=== PATIENT | female | born 1955 | race Caucasian/White ===

== ENCOUNTER 2016-08-13 18:16 | Inpatient (IN) | payer BC ==
[~2016-08-13] VITALS: Ht 162.6 cm; Wt 56.5 kg
[2016-08-13] MEDS ORDERED: MORPHINE SULFATE 4 MG/ML DISP.SYRIN. ONE (18:28)
[2016-08-13 18:42] LABS: BASO # 0.1 x10^3/uL (0.0-0.2); BASO % 1 % (0-3); EOS % 0 % (0-3); HEMATOCRIT 44.9 % (36.0-47.0); HEMOGLOBIN 14.7 g/dL (12.0-15.5); LYMPH # 2.3 x10^3/uL (1.0-4.8); LYMPH % 18 % (24-48); MEAN CORPUSCULAR HEMOGLOBIN 31 pg (25-35); MEAN CORPUSCULAR HGB CONC 33 g/dL (31-37); MEAN CORPUSCULAR VOLUME 95 fL (79-100); MONO % 6 % (0-9); NEUT % 76 % (31-73); PLATELET COUNT 192 x10^3/uL (140-400); RED BLOOD COUNT 4.73 x10^6/uL (3.50-5.40); RED CELL DISTRIBUTION WIDTH 13.6 % (11.5-14.5); WHITE BLOOD COUNT 12.9 x10^3/uL (4.0-11.0)
[2016-08-13] MEDS ORDERED: ONDANSETRON PF 4 MG/2 ML VIAL. IV ONE (18:45)
[2016-08-13 18:53] LABS: CALCIUM 9.4 mg/dL (8.5-10.1); CREATININE 1.1 mg/dL (0.6-1.0); GFR 50.7; POTASSIUM 4.4 mmol/L (3.5-5.1)
[2016-08-13] MEDS: fentaNYL PF VIAL 100 MCG/2 ML VIAL IV PRN ×2 (19:13→19:46)
--- NOTE | 2016-08-13 19:26 | PHYS DOC ---
Past Medical History Past Medical History: Arthritis Additional Past Medical Histor: WPW Past Surgical History: Tonsillectomy Alcohol Use: Occasionally Drug Use: None Adult General Chief Complaint Chief Complaint: TRAUMA ACTIVATION HPI HPI Patient is a 61 year old female who presents with severe right thigh pain after falling down 6 steps. She tripped and fell. Symptoms are constant and severe, worse with moving. Notes intermittent severe spasm-like pain to her thighs well. She denies loss of consciousness, head pain, headache, vision changes, dizziness, nausea or vomiting, back pain, chest pain, abdominal pain, dyspnea, numbness, tingling, weakness. A: patent with normal voice B: CTAB C: 2+ extremity pulses equal in all 4 ext D: GCS 15 E: obvious deformity to right mid thigh, no other obvious long bone deformity, stable pelvis Review of Systems Review of Systems Constitutional: Denies fever or chills [] Eyes: Denies change in visual acuity, redness, or eye pain [] HENT: Denies nasal congestion or sore throat [] Respiratory: Denies cough or shortness of breath [] Cardiovascular: No additional information not addressed in HPI [] GI: Denies abdominal pain, nausea, vomiting, bloody stools or diarrhea [] : Denies dysuria or hematuria [] Musculoskeletal: Denies back pain [] Integument: Denies rash or skin lesions [] Neurologic: Denies headache, focal weakness or sensory changes [] Endocrine: Denies polyuria or polydipsia [] Current Medications Current Medications Current Medications Medications (Trade) Dose Ordered Sig/[facility] Start Time Stop Time Status Last Admin Dose Admin Diazepam (Valium) 2 mg 1X ONCE 08/13/16 19:00 08/13/16 19:01 DC Fentanyl Citrate (Fentanyl 2ml Vial) 75 mcg PRN Q15MIN PRN 08/13/16 18:45 08/14/16 18:44 Lorazepam (Ativan) 1 mg 1X ONCE 08/13/16 18:45 08/13/16 19:01 DC Morphine Sulfate 4 mg STK-MED ONCE 08/13/16 18:28 08/13/16 18:29 DC Ondansetron HCl (Zofran) 4 mg 1X ONCE 08/13/16 18:45 08/13/16 19:01 DC Allergies Allergies Allergies Coded Allergies Type Severity Reaction Last Updated Verified codeine Allergy Intermediate 08/13/16 Yes Physical Exam Physical Exam Constitutional: Well developed, well nourished, no acute distress, non-toxic appearance. [] HENT: Normocephalic, atraumatic, bilateral external ears normal, oropharynx moist, no oral exudates, nose normal. [] Eyes: PERRLA, EOMI, conjunctiva normal, no discharge. [] Neck: Normal range of motion, no tenderness, supple. [] Cardiovascular:Heart rate regular rhythm [] Lungs & Thorax: Bilateral breath sounds clear to auscultation [] Abdomen: Bowel sounds normal, soft, no tenderness. [] Skin: Warm, dry, no erythema, no rash. [] Back: No tenderness, no CVA tenderness. [] Extremities: RLE with obvious deformity to mid thigh and free mobility mid thigh , also with mid thigh swelling; skin intact; no discoloration; Able to flex/ex hip, knee full rom, ankle df/pf, toes df/pf; No obvious knee tenderness or hip tenderness; SILT anderson/sa/sp/dp/tib distributions; good dp and pt pulses equal bilaterally Neurologic: Alert and oriented X 3, normal motor function, normal sensory function, no focal deficits noted. [] Psychologic: Affect normal, judgement normal, mood normal. [] Current Patient Data Lab Values Laboratory Tests Test 08/13/16 18:30 White Blood Count 12.9 x10^3/uL (4.0-11.0) H Red Blood Count 4.73 x10^6/uL (3.50-5.40) Hemoglobin 14.7 g/dL (12.0-15.5) Hematocrit 44.9 % (36.0-47.0) Mean Corpuscular Volume 95 fL (79-100) Mean Corpuscular Hemoglobin 31 pg (25-35) Mean Corpuscular Hemoglobin Concent 33 g/dL (31-37) Red Cell Distribution Width 13.6 % (11.5-14.5) Platelet Count 192 x10^3/uL (140-400) Neutrophils (%) (Auto) 76 % (31-73) H Lymphocytes (%) (Auto) 18 % (24-48) L Monocytes (%) (Auto) 6 % (0-9) Eosinophils (%) (Auto) 0 % (0-3) Basophils (%) (Auto) 1 % (0-3) Neutrophils # (Auto) 9.8 x10^3uL (1.8-7.7) H Lymphocytes # (Auto) 2.3 x10^3/uL (1.0-4.8) Monocytes # (Auto) 0.7 x10^3/uL (0.0-1.1) Eosinophils # (Auto) 0.0 x10^3/uL (0.0-0.7) Basophils # (Auto) 0.1 x10^3/uL (0.0-0.2) Sodium Level 140 mmol/L (136-145) Potassium Level 4.4 mmol/L (3.5-5.1) Chloride Level 104 mmol/L (98-107) Carbon Dioxide Level 26 mmol/L (21-32) Anion Gap 10 (6-14) Blood Urea Nitrogen 27 mg/dL (7-20) H Creatinine 1.1 mg/dL (0.6-1.0) H Estimated GFR (Cockcroft-Gault) 50.7 Glucose Level 153 mg/dL (70-99) H Calcium Level 9.4 mg/dL (8.5-10.1) Laboratory Tests 08/13/16 18:30 Laboratory Tests 08/13/16 18:30 EKG EKG EKG as interpreted by me as sinus rhythm with WPW, rate 48, no ST-T changes, VT 96, QTC 44, no ectopy Radiology/Procedures Radiology/Procedures X-ray right femur and right hip as interpreted by me with midshaft femur fracture, otherwise nonacute Chest xray as interpreted by me with no acute cardiopulmonary disease process Course & Med Decision Making Course & Med Decision Making Pertinent Labs and Imaging studies reviewed. (See chart for details) Discussed she has mid shaft femur fracture; applied bucks traction and given pain meds and benzo for spasm. Discussed case with Dr. Sanchez, trauma surgery, for trauma activation. Discussed case with Dr. Jacobs, orthopedics, who plans for operative management tonight. Discussed case with Dr. Lyons, who will admit. Dragon Disclaimer Dragon Disclaimer This electronic medical record was generated, in whole or in part, using a voice recognition dictation system. Departure Departure Impression: Primary Impression: Right femoral fracture Disposition: ADMITTED INPATIENT Condition: STABLE Referrals: SUDERMAN,ANA MARIA Y PET CAREGIVER (PCP) Problem Qualifiers Primary Impression: Right femoral fracture Encounter type: initial encounter Femur location: shaft Fracture type: closed Fracture morphology: spiral Fracture alignment: displaced Qualified Codes: S72.341A - Displaced spiral fracture of shaft of right femur, initial encounter for closed fracture Natalya SHEFFIELD MD August 13, 2016 19:26
[2016-08-13] MEDS ORDERED: ONDANSETRON PF 4 MG/2 ML VIAL. IV PRN ×3 (19:30→22:30)
[2016-08-13] MEDS ORDERED: ACETAMINOPHEN 325 MG TABLET. PO PRN (19:30)
[2016-08-13] MEDS ORDERED: fentaNYL PF VIAL 100 MCG/2 ML VIAL IV PRN ×4 (19:30→22:30)
[2016-08-13] MEDS ORDERED: PROPOFOL 20 ML IV ONE (19:54)
[2016-08-13] MEDS ORDERED: LIDOCAINE 2% PF Vial for OR 5 ML VIAL. ONE (19:54)
[2016-08-13] MEDS ORDERED: fentaNYL PF VIAL 100 MCG/2 ML VIAL ONE (19:54)
[2016-08-13] MEDS ORDERED: ONDANSETRON PF 4 MG/2 ML VIAL. ONE (19:54)
[2016-08-13] MEDS ORDERED: MIDAZOLAM HCL/PF 2 MG/2 ML VIAL. ONE (19:54)
[2016-08-13] MEDS ORDERED: DESFLURANE 61 TO 120 MINUTES IH ONE (19:54)
[2016-08-13] MEDS ORDERED: DEXAMETHASONE SOD PHOS 20 MG/5 ML VIAL. ONE (19:54)
[2016-08-13] MEDS ORDERED: BUPIVACAINE-EPI 0.25%-1:200000 50 ML VIAL. ONE (20:03)
[2016-08-13] MEDS ORDERED: IV RINGERS,LACTATED 1000ML 1,000 ML IV SCH (20:05)
[2016-08-13] MEDS ORDERED: LIDOCAINE 1% 1 ML SYRINGE. ID PRN (20:15)
[2016-08-13] MEDS ORDERED: PROCHLORPERAZINE 10 MG/2 ML VIAL. IV PRN (20:15)
[2016-08-13] MEDS ORDERED: MORPHINE SULFATE 2 MG/ML DISP.SYRIN. IV PRN (20:15)
[2016-08-13] MEDS ORDERED: HYDROCORTISONE SOD SUCC/PF 100 MG/2 ML VIAL. ONE (20:25)
--- NOTE | 2016-08-13 20:38 | PDOC2 ---
CONSULT Date of Consult Date of Consult DATE: 08/13/16 TIME: 20:27 Reason for Consult Reason for Consult: right femur fracture Identification/Chief Complaint Chief Complaint right thigh pain Source Source: Patient Past Medical History Past Medical History Rheumatoid arthritis, Esjcn-Qpusorryo-Fglug syndrome (WPW), recent depression Meds include: methotrexate weekly prednisone 7.5 mg daily Zoloft Folic Acid glucosamine weekly RA injection "Actimerin?" Cardiovascular: Other (WPW) Psych: Depression Rheumatologic: Rheumatoid arthritis Past Surgical History Past Surgical History rotator cuff surgery attempted WPW ablation Past Surgical History: Cholecystectomy, Tonsillectomy, Hysterectomy Family History Family History Breast cancer (sister?) Diabetes- mother Stroke Family History: Cancer, Diabetes, Stroke Social History Social History 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 quit smoking 10 years ago occ EtOH no street drugs Quit ALCOHOL: occassional Drugs: None Lives: with Family Current Medications Current Medications Current Medications Morphine Sulfate 4 mg STK-MED ONCE .ROUTE ; Start 08/13/16 at 18:28; Stop at 18:29; Status DC Fentanyl Citrate (Fentanyl 2ml Vial) 75 mcg PRN Q15MIN PRN IV PAIN GREATER THAN 3/10 Last administered on 08/13/16 19:46; Start 08/13/16 at 18:45; Stop at 18:44 Ondansetron HCl (Zofran) 4 mg 1X ONCE IV Last administered on 08/13/16 19:07 ; Start 08/13/16 at 18:45; Stop 08/13/16 at 19:01; Status DC Lorazepam (Ativan) 1 mg 1X ONCE IV ; Start 08/13/16 at 18:45; Stop 08/13/16 at 19:01; Status DC Diazepam (Valium) 2 mg 1X ONCE IV Last administered on 08/13/16 19:09; Start 08/13/16 at 19:00; Stop 08/13/16 at 19:01; Status DC Ondansetron HCl (Zofran) 4 mg PRN Q8HRS PRN IV NAUSEA/VOMITING; Start 08/13/16 at 19:30; Stop 08/14/16 at 19:29 Fentanyl Citrate (Fentanyl 2ml Vial) 50 mcg PRN Q1HR PRN IV PAIN; Start at 19:30; Stop 08/14/16 at 19:29 Acetaminophen (Tylenol) 650 mg PRN Q4HRS PRN PO FEVER; Start 08/13/16 at 19:30 ; Stop 08/14/16 at 19:29 Dexamethasone Sodium Phosphate (Decadron) 20 mg STK-MED ONCE .ROUTE ; Start at 19:54; Stop 08/13/16 at 19:55; Status DC Ondansetron HCl (Zofran) 4 mg STK-MED ONCE .ROUTE ; Start 08/13/16 at 19:54; Stop 08/13/16 at 19:55; Status DC Propofol 20 ml @ As Directed STK-MED ONCE IV ; Start 08/13/16 at 19:54; Stop at 19:55; Status DC Lidocaine HCl (Lidocaine Pf 2% Vial) 5 ml STK-MED ONCE .ROUTE ; Start 08/13/16 at 19:54; Stop 08/13/16 at 19:55; Status DC Desflurane (Suprane) 60 ml STK-MED ONCE IH ; Start 08/13/16 at 19:54; Stop 08/13 at 19:55; Status DC Fentanyl Citrate (Fentanyl 2ml Vial) 100 mcg STK-MED ONCE .ROUTE ; Start at 19:54; Stop 08/13/16 at 19:55; Status DC Midazolam HCl (Versed) 2 mg STK-MED ONCE .ROUTE ; Start 08/13/16 at 19:54; Stop 08/13/16 at 19:55; Status DC Bupivacaine HCl/ Epinephrine Bitart (Marcaine-Epi 0.25%-1:[id number]) 50 ml STK-MED ONCE .ROUTE ; Start 08/13/16 at 20:03; Stop 08/13/16 at 20:04; Status DC Ondansetron HCl (Zofran) 4 mg PRN Q6HRS PRN IV NAUSEA/VOMITING; Start 08/13/16 at 20:15; Stop 08/14/16 at 20:14 Fentanyl Citrate (Fentanyl 2ml Vial) 25 mcg PRN Q5MIN PRN IV MILD PAIN; Start 08/13/16 at 20:15; Stop 08/14/16 at 20:14 Fentanyl Citrate (Fentanyl 2ml Vial) 50 mcg PRN Q5MIN PRN IV MODERATE PAIN; Start 08/13/16 at 20:15; Stop 08/14/16 at 20:14 Morphine Sulfate 1 mg PRN Q10MIN PRN IV SEVERE PAIN; Start 08/13/16 at 20:15; Stop 08/14/16 at 20:14 Ringer's Solution 1,000 ml @ 0 mls/hr Q0M IV ; Start 08/13/16 at 20:05; Stop at 08:04 Lidocaine HCl 2 ml PRN 1X PRN ID PRIOR TO IV START; Start 08/13/16 at 20:15; Stop 08/14/16 at 20:14 Hydromorphone HCl (Dilaudid) 0.5 mg PRN Q10MIN PRN IV SEV PAIN, Second choice; Start 08/13/16 at 20:15; Stop 08/14/16 at 20:14 Prochlorperazine Edisylate (Compazine) 5 mg PACU PRN PRN IV NAUSEA, MRX1; Start 08/13/16 at 20:15; Stop 08/14/16 at 20:14 Hydrocortisone Sodium Succinate (Solu-CORTEF) 100 mg STK-MED ONCE .ROUTE ; Start 08/13/16 at 20:25; Stop 08/13/16 at 20:26; Status DC Allergies Allergies: Coded Allergies: codeine (Verified Allergy, Intermediate, 08/13/16) acetaminophen (Verified Allergy, Unknown, itching, 08/13/16) hydrocodone (Verified Allergy, Unknown, itching, 08/13/16) ROS PSYCHOLOGICAL ROS: YES: Anxiety HEENT: YES: Heacaches Cardiovascular: yes Chest Pain (felt due to WPW. Inspector Firearms found no other source) Genitourinary: No Dysuria Physical Exam General: Alert, Cooperative, mild distress HEENT: Atraumatic, Mucous membr. moist/pink Lungs: Normal air movement Heart: Regular rate Abdomen: Soft Extremities: Normal pulses, Other (right femur splinted, slight swelling, no compartment syndrome, skin intact over fracture) Skin: No significant lesion Neuro: Normal speech, Sensation intact MUSCULOSKELETAL: Abnormal exam of right (femur. Right hip nontender. Left lower extremity normal alignment sensation motor and skin. Bilat upper extremities normal alignment tone motor sensation and skin. ) Vitals VITALS Vital Signs Date Time Temp Pulse Resp B/P (MAP) Pulse Ox O2 Delivery O2 Flow Rate FiO2 08/13/16 19:46 Room Air 08/13/16 19:13 12 94 Labs Labs Laboratory Tests Test 08/13/16 18:30 White Blood Count 12.9 x10^3/uL (4.0-11.0) Red Blood Count 4.73 x10^6/uL (3.50-5.40) Hemoglobin 14.7 g/dL (12.0-15.5) Hematocrit 44.9 % (36.0-47.0) Mean Corpuscular Volume 95 fL (79-100) Mean Corpuscular Hemoglobin 31 pg (25-35) Mean Corpuscular Hemoglobin Concent 33 g/dL (31-37) Red Cell Distribution Width 13.6 % (11.5-14.5) Platelet Count 192 x10^3/uL (140-400) Neutrophils (%) (Auto) 76 % (31-73) Lymphocytes (%) (Auto) 18 % (24-48) Monocytes (%) (Auto) 6 % (0-9) Eosinophils (%) (Auto) 0 % (0-3) Basophils (%) (Auto) 1 % (0-3) Neutrophils # (Auto) 9.8 x10^3uL (1.8-7.7) Lymphocytes # (Auto) 2.3 x10^3/uL (1.0-4.8) Monocytes # (Auto) 0.7 x10^3/uL (0.0-1.1) Eosinophils # (Auto) 0.0 x10^3/uL (0.0-0.7) Basophils # (Auto) 0.1 x10^3/uL (0.0-0.2) Sodium Level 140 mmol/L (136-145) Potassium Level 4.4 mmol/L (3.5-5.1) Chloride Level 104 mmol/L (98-107) Carbon Dioxide Level 26 mmol/L (21-32) Anion Gap 10 (6-14) Blood Urea Nitrogen 27 mg/dL (7-20) Creatinine 1.1 mg/dL (0.6-1.0) Estimated GFR (Cockcroft-Gault) 50.7 Glucose Level 153 mg/dL (70-99) Calcium Level 9.4 mg/dL (8.5-10.1) Laboratory Tests Test 08/13/16 18:30 White Blood Count 12.9 x10^3/uL (4.0-11.0) Red Blood Count 4.73 x10^6/uL (3.50-5.40) Hemoglobin 14.7 g/dL (12.0-15.5) Hematocrit 44.9 % (36.0-47.0) Mean Corpuscular Volume 95 fL (79-100) Mean Corpuscular Hemoglobin 31 pg (25-35) Mean Corpuscular Hemoglobin Concent 33 g/dL (31-37) Red Cell Distribution Width 13.6 % (11.5-14.5) Platelet Count 192 x10^3/uL (140-400) Neutrophils (%) (Auto) 76 % (31-73) Lymphocytes (%) (Auto) 18 % (24-48) Monocytes (%) (Auto) 6 % (0-9) Eosinophils (%) (Auto) 0 % (0-3) Basophils (%) (Auto) 1 % (0-3) Neutrophils # (Auto) 9.8 x10^3uL (1.8-7.7) Lymphocytes # (Auto) 2.3 x10^3/uL (1.0-4.8) Monocytes # (Auto) 0.7 x10^3/uL (0.0-1.1) Eosinophils # (Auto) 0.0 x10^3/uL (0.0-0.7) Basophils # (Auto) 0.1 x10^3/uL (0.0-0.2) Sodium Level 140 mmol/L (136-145) Potassium Level 4.4 mmol/L (3.5-5.1) Chloride Level 104 mmol/L (98-107) Carbon Dioxide Level 26 mmol/L (21-32) Anion Gap 10 (6-14) Blood Urea Nitrogen 27 mg/dL (7-20) Creatinine 1.1 mg/dL (0.6-1.0) Estimated GFR (Cockcroft-Gault) 50.7 Glucose Level 153 mg/dL (70-99) Calcium Level 9.4 mg/dL (8.5-10.1) Images Images x-rays reviewed hip and femur. Comminuted femoral shaft fracture without apparent distal intra-articular extension. No hip fracture seen. Assessment/Plan Assessment/Plan I recommend urgent IM nail. I discussed nonsurgical historical options of traction which is not recommended. I discussed risks with patient, son and including malunion, nonunion, bleeding, infection, DVT/PE, potential hardware removal, and risks of poor healing due to steroids and MTX. All q's answered. I described retrograde nail which is my recommendation. They desire to proceed. VALE RODRIGUEZ MD August 13, 2016 20:38
[2016-08-13] MEDS ORDERED: PHENYLEPHRINE in 0.9% NACL PF 1 MG/10 ML DISP.SYRIN. IV ONE (20:43)
[2016-08-13] MEDS ORDERED: POLYETHYLENE GLYCOL 3350 17 GM PACKET. PO PRN (22:30)
[2016-08-13] MEDS ORDERED: MORPHINE SULFATE 4 MG/ML DISP.SYRIN. IV PRN (22:30)
[2016-08-13] MEDS ORDERED: DEXTROSE 50% 25 GM / 50ML DISP.SYRIN. IV PRN (22:30)
--- NOTE | 2016-08-13 22:35 | PDOC4 ---
Operative Note Operative Note Date of Procedure: August 13, 2016 Pre-Op Diagnosis: 1. Displaced comminuted fracture of shaft right femur, initial encounter for closed fracture displaced comminuted fracture right femur S72.351A 2. Pathologic fracture from other disease right femur initial encounter for fracture M84.651A Post-Op Diagnosis: * Displaced comminuted fracture of shaft right femur, initial encounter for closed fracture * Pathologic femur fracture Procedure: Open treatment of femoral shaft fracture with insertion of ( retrograde) intramedullary implant and locking screws CPT 90119 Surgeon: Vale Jacobs MD [employer] Sales Executive: Jes Cardoso PA-C Anesthesia: General EBL: 200 mL Specimens Obtained: none Complications: none Drains: none Indications for Procedure: The patient is a 61-year-old who fell at home, and sustained a comminuted displaced closed right femoral shaft fracture. This is a pathologic fracture by definition, and she has a history of many years of oral steroid use and oral methotrexate use which contributes to the pathologic bone. She has rheumatoid arthritis which is the underlying disease causing the pathologic bone. The patient and I discussed the risks, benefits and alternatives of surgery. I recommended intramedullary implant fixation, from a retrograde approach, and discussed with her the potential risks of infection, neurovascular injury, nonunion, malunion, possible hardware removal, bleeding, blood clots, or other potential surgical or anesthetic complications. All of her questions about surgery were answered and she desired to proceed. A written consent was obtained. Procedure in Detail: The patient was identified in the preoperative holding area. The correct extremity was marked by me. The patient was taken to the operating room where general anesthesia was used. The patient was positioned supine on the operating table. Preoperative antibiotics were given intravenously. A timeout procedure was performed. The limb was prepared circumferentially in sterile fashion. Chlorhexidine scrub was used first, followed by ChloraPrep. An impervious stockinette was used over the lower limb. Sterile drapes were applied. A radiolucent table was used. A longitudinal incision was made from the inferior pole of patella to the tibial tubercle, along the center of the patellar tendon. The patellar tendon was then exposed medially, and retracted by Jes Cardoso PA-C, my assistant manager bilingual. The fat pad was partially resected for visualization. The notch was identified. A guidepin was placed under direct vision, just anterior to the posterior cruciate ligament, as described for the [place] supracondylar nail. Guide pin positioning was now checked using the large C-arm in AP and lateral planes, and repositioned until accurate positioning had been obtained. With the intramedullary guidepin in place, the distal reaming was performed. Soft tissue protector was used. Next the long intramedullary guidewire was placed, and I now had Jes reduce the fracture with longitudinal traction, rotation, and flexion over a bump, and the guidewire was passed to the proximal fragment, along the comminuted shaft fragments. There was no ability to get a anatomic reduction due to the extensive comminution. The guidepin was then advanced to the lesser trochanter which was used as a landmark for the proximal end of the nail. Using the tissue protector, sequential reaming was performed until intramedullary chatter was obtained. I then advanced one more millimeter, of reaming, up to 12 mm, and chose the 11 mm nail. The guidewire was measured with the fracture reduced, and an 11 x 280 mm nail was chosen. Outer gloves were changed. The implant was opened. The knee was irrigated with saline. The implant was now applied without difficulty, and its position was checked on the image intensifier in AP and lateral planes. Jes my assistant manager bilingual held the fracture reduced while the nail was placed. Next the distal interlocking was performed. All 4 of the available distal interlocking screws were placed, using the dedicated drill guide. Next the proximal locking screws were placed using a freehand technique and the image intensifier. 2 bicortical static locking screws were placed. Reduction and fixation now appeared excellent in all planes using the image intensifier. Copious irrigation was used a final time. The incisions were closed in layers. The parapatellar approach was closed with 2 -0 Vicryl [id number] sutures. A periarticular injection was used with 50 mL of 0.25% ropivacaine. Subcutaneous tissues were closed with 2-0 Vicryl. Jes my assistant manager bilingual then completed the closure with thien. She applied sterile dressings. Needle and sponge counts were correct. There were no apparent complications. VALE JACOBS MD August 13, 2016 22:35
[2016-08-13] MEDS: HYDROmorphone 2 MG/ML VIAL IV PRN ×2 (22:54→23:05)
[2016-08-13 23:00] VITALS: BP 138/60
[2016-08-13 23:10] VITALS: BP 111/65
--- NOTE | 2016-08-13 23:10 | ACF ---
Admission Forms Criteria MUSCULOSKELETAL DISEASE GRG Clinical Indications for Admission to Inpatient Care (Place 'X' for any and all applicable criteria): Hospital admission is needed for appropriate care of the patient because of 1 or more of the following: [X ]I. Fracture, dislocation, or other musculoskeletal injury requiring inpatient care(medical) as indicated by 1 or more of the following(4)(5)(6)(7) [ ]a) Vertebral fracture requiring observation for instability or neurologic compromise (8) [ ]b) Compartment syndrome (proven or cannot be ruled out during observation level of care) (9) [ ]c) Limb-threatening injury [ ]d) Major injury requiring inpatient stabilization such as traction initiation or external fixation before internal fixation or closure of complex or open fracture [X ]e) Major injury requiring inpatient treatment after emergency or observation level care (as appropriate) [ ]f) Severe pain requiring acute inpatient management [ ]g) Injury with suspicion of abuse or neglect (eg., child, dependent elderly) [ ]II. Newly diagnosed or suspected bone, joint, or orthopedic device infection (e.g., osteomyelitis, septic arthritis) needing 1 or more of the following(1)(2)(3) [ ]a) IV antibiotics that cannot be initiated in other than inpatient setting (e.g., patient too unstable or home infusion not available) [ ]b) Device removal or replacement [ ]c) Bone or soft tissue debridement [ ]d) Joint drainage (drain placement or repetitive aspirations) [ ]III. Severe rheumatologic disease (e.g., systemic lupus erythematosus, rheumatoid arthritis) with complications or comorbidities (Also use Optimal Recovery Care Criteria or General Recovery Criteria as appropriate on the basis of predominant condition), including 1 or more of the following( 10)(11)(12)(13) [ ]a) Severe infection (e.g., [employer]ER infection, sepsis) (14) [ ]b) Respiratory complications, including 1 or more of the following : [ ]i) Pleural effusion with respiratory compromise [ ]ii) Pulmonary hypertension with congestive failure [ ]iii) Respiratory failure [ ]iv) Pulmonary hemorrhage (15) [ ]c) Hematologic disease, including 1 or more of the following: [ ]i) Coagulopathy with bleeding [ ]ii) Thrombosis with hypercoagulable state [ ]iii) Thrombotic thrombocytopenic purpura [ ]d) Cerebritis with seizures, psychosis, or other severe abnormalities [ ]e) Vertebral destruction with monitoring needed for cervical myelopathy& possible respiratory compromise [ ]f) Exacerbation that requires inpatient treatment (e.g., intravenous immunosuppression) (16) [ ]g) Acute renal failure [ ]h) Cerebritis with seizures, psychosis, Altered mental status, or other neurologic abnormalities [ ]i) Pericardial effusion with tamponade [ ]j) Vertebral destruction, with monitoring needed for cervical myelopathy and possible respiratory compromise [ ]IV. Severe vasculitis with complications or comorbidities (Also use Optimal Recovery Care Criteria General Recovery Criteria as appropriate on the basis of predominant condition), including 1 or more of the following(11)(12)(17)(18)(19)(20) [ ]a) Exacerbation that requires inpatient treatment (e.g., intravenous immunosuppression) (19)(21) [ ]b) Pulmonary hemorrhage (15) [ ]c) [employer] vasculitis with seizures, psychosis, Altered mental status that is severe or persistent, or other severe abnormalities (22) [ ]d) Cerebral infarction [ ]e) Gastrointestinal ischemia [ ]f) Gangrene or threatened amputation [ ]g) Renal failure (16) [ ]h) Other significant complications of vasculitis ( eg., tissue or organ ischemia, organ dysfunction ) [ ]V. Severe myopathy as indicated by 1 or more of the following (28)(29) [ ]a) New onset of airway compromise or inability to swallow [ ]b) Respiratory deterioration with observation needed for impending respiratory failure [ ]c) Exacerbation that requires inpatient treatment (e.g., intravenous immunosuppression) [ ]. Severe crystal gout (arthropathy) indicated by 1 or more of the following (23)(24) [ ]a) Severe pain requiring acute inpatient management [ ]b) Exacerbation that requires inpatient treatment (e.g., intravenous treatment) [ ]VII.Rhabdomyolysis and 1 or more of the following (25)(26)(27) [ ]a) Acute renal failure [ ]b) Need for intravenous hydration after emergency or observation level care (as appropriate) [ ]c) Inability to maintain oral hydration [ ]d) Change in mental status [ ]e) Electrolyte abnormality that remains after emergency or observation level care (as appropriate) [ ]VIII Post amputation complication, as indicated by ANY ONE of the following [ ]a) Infection [ ]b) Dehiscence [ ]c) Myodesis failure [ ]IX. Severe pain requiring acute inpatient management due to musculoskeletal condition [ ]X. Musculoskeletal Disease and ALL of the following: [ ]a) Symptom or finding for which emergency and observation care have failed or are not considered appropriate (Use General Criteria: Observation Care as appropriate) [ ]b) Presence of ANY ONE of the following [ ]i) A General Admission Criteria [ ]ii) A Pediatric General Admission Criteria The original [facility] [employer] content created by [facility] [employer] has been revised. The portions of the content which have been revised are identified through the use of italic text or in bold, and [facility] has neither reviewed nor approved the modified material. All other unmodified content is copyright [facility] [employer]. Please see references footnoted in the original [facility] [employer] edition 2016 Admission Criteria Met?: Yes SUSAN DEL RIO August 13, 2016 23:10
[2016-08-13 23:19] VITALS: BP 111/65
[2016-08-13 23:35] VITALS: BP 99/62
[2016-08-13 23:50] VITALS: BP 106/72
[2016-08-14] VITALS (9 sets, daily range): BP systolic 106–138; BP diastolic 66–73
[2016-08-14] MEDS ORDERED: diphenhydrAMINE HCL 25 MG CAPSULE PO PRN
[2016-08-14] MEDS: diphenhydrAMINE 50 MG/ML VIAL IVP PRN ×4 (00:02→21:48)
[2016-08-14] MEDS: MORPHINE SULFATE 2 MG/ML DISP.SYRIN. IV PRN ×2 (03:07→05:39)
[2016-08-14 04:50] LABS: HEMATOCRIT 35.6 % (36.0-47.0); HEMOGLOBIN 11.6 g/dL (12.0-15.5)
[2016-08-14] MEDS ORDERED: MAGNESIUM HYDROXIDE 2,400 MG/30 ML ORAL.SUSP. PO PRN (06:00)
--- NOTE | 2016-08-14 07:31 | EKG ---
[facility] [address] [place] [address] Test Date: 2016-08-13 Test Time: 18:53:45 Pat Name: CAITLYN RODRIGUEZ Department: Room: 406 Gender: F Head Of Acquisitions: : 1955 Requested By: Natalya SHEFFIELD Order Number: [id number] Reading MD: Sabrina Mckeon Measurements Intervals [place] Rate: 48 P: 90 DE: 96 QRS: -64 QRSD: 112 T: 56 QT: 448 QTc: 404 Interpretive Statements SINUS BRADYCARDIA ABNORMAL LEFT AXIS DEVIATION LEFT ANTERIOR FASCICULAR BLOCK INCOMPLETE RIGHT BUNDLE BRANCH BLOCK Electronically Signed On 08-16-2016 20:47:13 CDT by Sabrina Mckeon
--- NOTE | 2016-08-14 08:12 | RAD ---
Right hip, 2 views, 08/13/2016: History: Fall, pain The right hip joint is fairly well-preserved with only mild marginal spurring. No acute hip fracture or dislocation is identified. Right femur, 2 views, 08/13/2016: There is a comminuted fracture of the mid to distal femoral shaft. There is mild overriding of the fracture fragments with moderate lateral displacement and mild posterior angulation of the major distal fracture fragments. Mild degenerative change is present at the right knee. IMPRESSION: Comminuted, displaced right femoral shaft fracture.
--- NOTE | 2016-08-14 08:14 | RAD ---
Portable chest, 08/13/2016: History: Preop evaluation, femur fracture Comparison is made to a study from 11/27/2011. The heart size and pulmonary vascularity are normal. There are granulomatous calcifications in the left chest. No acute infiltrate is seen. There is no evidence of pleural fluid or pneumothorax. IMPRESSION: No acute cardiopulmonary abnormality is detected.
[2016-08-14] MEDS: SENNOSIDES/DOCUSATE 8.6/50MG TABLET. PO SCH (09:25)
[2016-08-14] MEDS: CALCIUM CARBONATE 500 MG TABLET PO SCH ×3 (09:25→18:32)
[2016-08-14] MEDS: ASPIRIN 325 MG TABLET PO SCH ×2 (09:25→21:04)
[2016-08-14] MEDS: CHOLECALCIFEROL (VITAMIN D3) 1,000 UNIT TABLET PO SCH (09:25)
[2016-08-14] MEDS: oxyCODONE IR 5 MG TABLET PO PRN ×4 (09:25→20:11)
--- NOTE | 2016-08-14 10:09 | PDOC1 ---
History and Physical Past Medical History Cardiovascular: Other (WPW) Psych: Depression Rheumatologic: Rheumatoid arthritis Past Surgical History Past Surgical History: Cholecystectomy, Tonsillectomy, Hysterectomy Family History Family History: Cancer, Diabetes, Stroke Social History Smoke: Quit ALCOHOL: occassional Drugs: None Current Medications Current Medications Current Medications Medications (Trade) Dose Ordered Sig/Falguni Start Time Stop Time Status Last Admin Dose Admin Acetaminophen (Tylenol) 650 mg PRN Q4HRS PRN 08/13/16 19:30 08/14/16 19:29 Aspirin (Dread Aspirin) 325 mg BID 08/14/16 09:00 08/14/16 09:25 325 MG Bisacodyl (Dulcolax Supp) 10 mg 1X PRN PRN 08/14/16 16:00 08/15/16 15:59 Bupivacaine HCl/ Epinephrine Bitart (Marcaine-Epi 0.25%-[id number]) 50 ml STK-MED ONCE 08/13/16 20:03 08/13/16 20:04 DC 08/13/16 22:11 50 ML Calcium Carbonate/ Glycine (Oscal) 500 mg TIDAFTMEAL 08/14/16 09:00 08/14/16 09:25 500 MG Cefazolin Sodium/ Dextrose 50 ml @ 100 mls/hr Q6H 08/13/16 23:30 08/14/16 11:59 08/14/16 05:38 100 MLS/HR Desflurane (Suprane) 60 ml STK-MED ONCE 08/13/16 19:54 08/13/16 19:55 DC Dexamethasone Sodium Phosphate (Decadron) 20 mg STK-MED ONCE 08/13/16 19:54 08/13/16 19:55 DC Dextrose (Dextrose 50%-Water Syringe) 12.5 gm PRN Q15MIN PRN 08/13/16 22:30 Diazepam (Valium) 2 mg 1X ONCE 08/13/16 19:00 08/13/16 19:01 DC 08/13/16 19:09 2 MG Diphenhydramine HCl (Benadryl) 50 mg PRN Q6HRS PRN 08/14/16 00:00 08/14/16 05:38 50 MG Fentanyl Citrate (Fentanyl 2ml Vial) 25 mcg PRN Q1HR PRN 08/13/16 22:30 Hydrocortisone Sodium Succinate (Solu-CORTEF) 100 mg STK-MED ONCE 08/13/16 20:25 08/13/16 20:26 DC Hydromorphone HCl (Dilaudid) 0.5 mg PRN Q10MIN PRN 08/13/16 20:15 08/14/16 20:14 08/13/16 23:05 0.5 MG Lidocaine HCl 2 ml PRN 1X PRN 08/13/16 20:15 08/14/16 20:14 Lidocaine HCl (Lidocaine Pf 2% Vial) 5 ml STK-MED ONCE 08/13/16 19:54 08/13/16 19:55 DC Lorazepam (Ativan) 1 mg 1X ONCE 08/13/16 18:45 08/13/16 19:01 DC Magnesium Hydroxide (Milk Of Magnesia) 2,400 mg 1X PRN PRN 08/14/16 06:00 08/15/16 05:59 Midazolam HCl (Versed) 2 mg STK-MED ONCE 08/13/16 19:54 08/13/16 19:55 DC Morphine Sulfate 4 mg PRN Q2HR PRN 08/13/16 22:30 Ondansetron HCl (Zofran) 4 mg PRN Q4HRS PRN 08/13/16 22:30 Oxycodone HCl (Roxicodone) 5 mg PRN Q3HRS PRN 08/13/16 22:30 08/14/16 09:25 5 MG Phenylephrine HCl 1 mg STK-MED ONCE 08/13/16 20:43 08/13/16 20:44 DC Polyethylene Glycol (miraLAX PACKET) 17 gm PRN DAILY PRN 08/13/16 22:30 Prochlorperazine Edisylate (Compazine) 5 mg PACU PRN PRN 08/13/16 20:15 08/14/16 20:14 Propofol 20 ml @ As Directed STK-MED ONCE 08/13/16 19:54 08/13/16 19:55 DC Ringer's Solution 1,000 ml @ 0 mls/hr Q0M 08/13/16 20:05 08/14/16 08:04 DC Senna/Docusate Sodium (Senna Plus) 1 tab DAILY 08/14/16 09:00 08/14/16 09:25 1 TAB Tramadol HCl (Ultram) 50 mg PRN QID PRN 08/13/16 22:30 Vitamin D (Vitamin D3) 1,000 unit DAILY 08/14/16 09:00 08/14/16 09:25 1,000 UNIT Allergies Allergies Allergies Coded Allergies Type Severity Reaction Last Updated Verified codeine Allergy Intermediate 08/13/16 Yes acetaminophen Allergy Unknown itching 08/13/16 Yes hydrocodone Allergy Unknown itching 08/13/16 Yes ROS Review of System CONSTITUTIONAL: No fever or chills EYES: No recent changes SKIN: No rash or itching CARDIOVASCULAR: No chest pain, syncope, palpitations, or edema RESPIRATORY: No SOB or cough GASTROINTESTINAL: No nausea, vomiting or abdominal pain NEUROLOGICAL: No headaches or weakness ENDOCRINE: No cold or heat intolerance GENITOURINARY: No urgency or frequency of urination MUSCULOSKELETAL: hip pain 11/01 LYMPHATICS: No enlarged lymph nodes PSYCHIATRIC: No anxiety or depression Physical Exam Physical Exam GEN.: No apparent distress. Alert and oriented. HEENT: Head is normocephalic, atraumatic NECK: Supple. no JVD LUNGS: Clear to auscultation. Normal airflow. HEART: RRR, S1, S2 present. Peripheral pulses intact ABDOMEN: Soft, nontender. Positive bowel sounds. EXTREMITIES: Without any cyanosis. NEUROLOGIC: Normal speech, normal tone PSYCHIATRIC: Normal affect, normal mood. SKIN: Vitals Vitals Vital Signs Date Time Temp Pulse Resp B/P (MAP) Pulse Ox O2 Delivery O2 Flow Rate FiO2 08/14/16 07:00 98.2 59 16 106/66 (79) 99 Room Air 98.2 08/14/16 06:10 2.0 Labs Labs Laboratory Tests Test 08/13/16 18:30 08/14/16 04:05 White Blood Count 12.9 x10^3/uL (4.0-11.0) Red Blood Count 4.73 x10^6/uL (3.50-5.40) Hemoglobin 14.7 g/dL (12.0-15.5) 11.6 g/dL (12.0-15.5) Hematocrit 44.9 % (36.0-47.0) 35.6 % (36.0-47.0) Mean Corpuscular Volume 95 fL (79-100) Mean Corpuscular Hemoglobin 31 pg (25-35) Mean Corpuscular Hemoglobin Concent 33 g/dL (31-37) 33 g/dL (31-37) Red Cell Distribution Width 13.6 % (11.5-14.5) Platelet Count 192 x10^3/uL (140-400) Neutrophils (%) (Auto) 76 % (31-73) Lymphocytes (%) (Auto) 18 % (24-48) Monocytes (%) (Auto) 6 % (0-9) Eosinophils (%) (Auto) 0 % (0-3) Basophils (%) (Auto) 1 % (0-3) Neutrophils # (Auto) 9.8 x10^3uL (1.8-7.7) Lymphocytes # (Auto) 2.3 x10^3/uL (1.0-4.8) Monocytes # (Auto) 0.7 x10^3/uL (0.0-1.1) Eosinophils # (Auto) 0.0 x10^3/uL (0.0-0.7) Basophils # (Auto) 0.1 x10^3/uL (0.0-0.2) Sodium Level 140 mmol/L (136-145) Potassium Level 4.4 mmol/L (3.5-5.1) Chloride Level 104 mmol/L (98-107) Carbon Dioxide Level 26 mmol/L (21-32) Anion Gap 10 (6-14) Blood Urea Nitrogen 27 mg/dL (7-20) Creatinine 1.1 mg/dL (0.6-1.0) Estimated GFR (Cockcroft-Gault) 50.7 Glucose Level 153 mg/dL (70-99) Calcium Level 9.4 mg/dL (8.5-10.1) Laboratory Tests Test 08/13/16 18:30 08/14/16 04:05 White Blood Count 12.9 x10^3/uL (4.0-11.0) Red Blood Count 4.73 x10^6/uL (3.50-5.40) Hemoglobin 14.7 g/dL (12.0-15.5) 11.6 g/dL (12.0-15.5) Hematocrit 44.9 % (36.0-47.0) 35.6 % (36.0-47.0) Mean Corpuscular Volume 95 fL (79-100) Mean Corpuscular Hemoglobin 31 pg (25-35) Mean Corpuscular Hemoglobin Concent 33 g/dL (31-37) 33 g/dL (31-37) Red Cell Distribution Width 13.6 % (11.5-14.5) Platelet Count 192 x10^3/uL (140-400) Neutrophils (%) (Auto) 76 % (31-73) Lymphocytes (%) (Auto) 18 % (24-48) Monocytes (%) (Auto) 6 % (0-9) Eosinophils (%) (Auto) 0 % (0-3) Basophils (%) (Auto) 1 % (0-3) Neutrophils # (Auto) 9.8 x10^3uL (1.8-7.7) Lymphocytes # (Auto) 2.3 x10^3/uL (1.0-4.8) Monocytes # (Auto) 0.7 x10^3/uL (0.0-1.1) Eosinophils # (Auto) 0.0 x10^3/uL (0.0-0.7) Basophils # (Auto) 0.1 x10^3/uL (0.0-0.2) Sodium Level 140 mmol/L (136-145) Potassium Level 4.4 mmol/L (3.5-5.1) Chloride Level 104 mmol/L (98-107) Carbon Dioxide Level 26 mmol/L (21-32) Anion Gap 10 (6-14) Blood Urea Nitrogen 27 mg/dL (7-20) Creatinine 1.1 mg/dL (0.6-1.0) Estimated GFR (Cockcroft-Gault) 50.7 Glucose Level 153 mg/dL (70-99) Calcium Level 9.4 mg/dL (8.5-10.1) VTE Prophylaxis Ordered VTE Prophylaxis Devices: Yes VTE Pharmacological Prophylaxi: Yes RON AGUERO MD August 14, 2016 10:09
[2016-08-14] MEDS ORDERED: SERT50TA8 PO (11:54)
[2016-08-14] MEDS ORDERED: PRED2.5T PO (11:54)
[2016-08-14] MEDS ORDERED: TOCI80VI IV (11:54)
[2016-08-14] MEDS ORDERED: METH2.5T PO (11:54)
[2016-08-14] MEDS ORDERED: FOLI1TAB16 PO (11:54)
[2016-08-14] MEDS: predniSONE 5 MG TABLET PO SCH (13:00)
[2016-08-14] MEDS: FOLIC ACID 1 MG TABLET. PO SCH ×2 (13:00→16:04)
[2016-08-14] MEDS: SERTRALINE 50 MG TABLET. PO SCH ×2 (13:00→16:04)
--- NOTE | 2016-08-14 13:03 | HP ---
ADMIT DATE: 08/14/2016 Date of Exam: 08/14/2016 at 12:20 p.m. CHIEF COMPLAINT: Trauma, right thigh pain. HISTORY OF PRESENT ILLNESS: A 61-year-old female patient with prior history of rheumatoid arthritis who presented to the ER with right thigh pain after sustaining a mechanical fall. The patient tipped over and fell down 6 steps, and she was diagnosed with a fracture of the right femur. Trauma Team was activated, and she had an emergency surgery by Dr. Jacobs, open treatment and femoral shaft fracture with incision off retrograde intramedullary implant. The patient was seen post-surgery. Pain has been controlled. However, she was requiring 10 mg of oxycodone q. 3h. PAST MEDICAL HISTORY: WPW and rheumatoid arthritis. PAST SURGICAL HISTORY: Tonsillectomy. PERSONAL HISTORY: No smoking, no alcohol, no drug abuse. FAMILY HISTORY: Unknown to the patient. ALLERGIES: HYPERTENSION WITH CODEINE AND HYDROCODONE. REVIEW OF SYSTEMS: Please see my electronic H and P. PHYSICAL EXAMINATION: Please see my electronic H and P. LABORATORY DATA: WBC 12.9. Rest of the CBC within normal limits. Chemistries: BUN is 27, creatinine 1.1, and GFR is 50.7. IMAGING STUDIES: Chest x-ray: No acute cardiopulmonary process seen. Hip x-ray with comminuted displaced right femoral shaft fracture. ASSESSMENT AND PLAN: 1. Comminuted displaced right femoral shaft fractures, status post Open treatment of femoral shaft fracture with insertion of (retrograde) intramedullary implant and locking screws 2. Deep venous thrombosis prophylaxis. 3. Rheumatoid arthritis. PLAN: 1. The patient's pain has been controlled with oxycodone and p.r.n. morphine IV. 2. Physical therapy and occupational therapy. 3. Deep venous thrombosis prophylaxis with Lovenox. 4. Home medications resumed. 5. Mother Repairer consult for SNF placement. RON AGUERO MD DR: ALEXANDER/adán JOB#: [id number] / [id number] HALI
--- NOTE | 2016-08-14 14:36 | PDOC2 ---
CONSULT Date of Consult Date of Consult DATE: 08/14/16 TIME: 10:00 Reason for Consult Reason for Consult: trauma admission Referring Physician Referring Physician: Dr Lyons Identification/Chief Complaint Chief Complaint right leg pain Source Source: Chart review, Patient History of Present Illness Reason for Visit: Ms Champagne is a 61 yo female on chronic steroid therapy who fell at home last night and fractured her right femur. She was taken to the OR earlier today for placement of an intramedullary nikita. Past Medical History Cardiovascular: Other (WPW) Psych: Depression Rheumatologic: Rheumatoid arthritis Past Surgical History Past Surgical History: Cholecystectomy, Tonsillectomy, Hysterectomy Family History Family History: Cancer, Diabetes, Stroke Social History Quit ALCOHOL: occassional Drugs: None Lives: with Family Current Medications Current Medications Current Medications Morphine Sulfate 4 mg STK-MED ONCE .ROUTE ; Start 08/13/16 at 18:28; Stop at 18:29; Status DC Fentanyl Citrate (Fentanyl 2ml Vial) 75 mcg PRN Q15MIN PRN IV PAIN GREATER THAN 3/10 Last administered on 08/13/16 19:46; Start 08/13/16 at 18:45; Stop at 12:41; Status DC Ondansetron HCl (Zofran) 4 mg 1X ONCE IV Last administered on 08/13/16 19:07 ; Start 08/13/16 at 18:45; Stop 08/13/16 at 19:01; Status DC Lorazepam (Ativan) 1 mg 1X ONCE IV ; Start 08/13/16 at 18:45; Stop 08/13/16 at 19:01; Status DC Diazepam (Valium) 2 mg 1X ONCE IV Last administered on 08/13/16 19:09; Start 08/13/16 at 19:00; Stop 08/13/16 at 19:01; Status DC Ondansetron HCl (Zofran) 4 mg PRN Q8HRS PRN IV NAUSEA/VOMITING; Start 08/13/16 at 19:30; Stop 08/14/16 at 11:40; Status DC Fentanyl Citrate (Fentanyl 2ml Vial) 50 mcg PRN Q1HR PRN IV PAIN; Start at 19:30; Stop 08/14/16 at 19:29 Acetaminophen (Tylenol) 650 mg PRN Q4HRS PRN PO FEVER; Start 08/13/16 at 19:30 ; Stop 08/14/16 at 19:29 Dexamethasone Sodium Phosphate (Decadron) 20 mg STK-MED ONCE .ROUTE ; Start at 19:54; Stop 08/13/16 at 19:55; Status DC Ondansetron HCl (Zofran) 4 mg STK-MED ONCE .ROUTE ; Start 08/13/16 at 19:54; Stop 08/13/16 at 19:55; Status DC Propofol 20 ml @ As Directed STK-MED ONCE IV ; Start 08/13/16 at 19:54; Stop at 12:41; Status DC Lidocaine HCl (Lidocaine Pf 2% Vial) 5 ml STK-MED ONCE .ROUTE ; Start 08/13/16 at 19:54; Stop 08/13/16 at 19:55; Status DC Desflurane (Suprane) 60 ml STK-MED ONCE IH ; Start 08/13/16 at 19:54; Stop 08/13 at 19:55; Status DC Fentanyl Citrate (Fentanyl 2ml Vial) 100 mcg STK-MED ONCE .ROUTE ; Start at 19:54; Stop 08/13/16 at 19:55; Status DC Midazolam HCl (Versed) 2 mg STK-MED ONCE .ROUTE ; Start 08/13/16 at 19:54; Stop 08/13/16 at 19:55; Status DC Bupivacaine HCl/ Epinephrine Bitart (Marcaine-Epi 0.25%-1:[id number]) 50 ml STK-MED ONCE .ROUTE Last administered on 08/13/16t 22:11; Start 08/13/16 at 20:03; Stop 08/13/16 at 20:04; Status DC Ondansetron HCl (Zofran) 4 mg PRN Q6HRS PRN IV NAUSEA/VOMITING; Start 08/13/16 at 20:15; Stop 08/13/16 at 23:36; Status DC Fentanyl Citrate (Fentanyl 2ml Vial) 25 mcg PRN Q5MIN PRN IV MILD PAIN Last administered on 08/13/16t 22:37; Start 08/13/16 at 20:15; Stop 08/14/16 at 12:41 ; Status DC Fentanyl Citrate (Fentanyl 2ml Vial) 50 mcg PRN Q5MIN PRN IV MODERATE PAIN Last administered on 08/13/16 22:43; Start 08/13/16 at 20:15; Stop 08/14/16 at 12:41; Status DC Morphine Sulfate 1 mg PRN Q10MIN PRN IV SEVERE PAIN; Start 08/13/16 at 20:15; Stop 08/14/16 at 12:41; Status DC Ringer's Solution 1,000 ml @ 0 mls/hr Q0M IV ; Start 08/13/16 at 20:05; Stop at 08:04; Status DC Lidocaine HCl 2 ml PRN 1X PRN ID PRIOR TO IV START; Start 08/13/16 at 20:15; Stop 08/14/16 at 12:41; Status DC Hydromorphone HCl (Dilaudid) 0.5 mg PRN Q10MIN PRN IV SEV PAIN, Second choice Last administered on 08/13/16 23:05; Start 08/13/16 at 20:15; Stop 08/14/16 at 12:41; Status DC Prochlorperazine Edisylate (Compazine) 5 mg PACU PRN PRN IV NAUSEA, MRX1; Start 08/13/16 at 20:15; Stop 08/14/16 at 20:14 Hydrocortisone Sodium Succinate (Solu-CORTEF) 100 mg STK-MED ONCE .ROUTE ; Start 08/13/16 at 20:25; Stop 08/13/16 at 20:26; Status DC Cefazolin Sodium/ Dextrose 50 ml @ 100 mls/hr 1X PREOP IV Last administered on 08/13/16 20:56; Start 08/13/16 at 20:45; Stop 08/14/16 at 13:43; Status DC Phenylephrine HCl 1 mg STK-MED ONCE IV ; Start 08/13/16 at 20:43; Stop 08/13/16 at 20:44; Status DC Tramadol HCl (Ultram) 50 mg PRN QID PRN PO PAIN; Start 08/13/16 at 22:30 Oxycodone HCl (Roxicodone) 5 mg PRN Q3HRS PRN PO PAIN Last administered on 08/14 09:25; Start 08/13/16 at 22:30 Morphine Sulfate 2 mg PRN Q1HR PRN IV PAIN Last administered on 08/14/16 05:39 ; Start 08/13/16 at 22:30 Fentanyl Citrate (Fentanyl 2ml Vial) 25 mcg PRN Q1HR PRN IV PAIN; Start at 22:30; Stop 08/14/16 at 12:41; Status DC Senna/Docusate Sodium (Senna Plus) 1 tab DAILY PO Last administered on 09:25; Start 08/14/16 at 09:00 Polyethylene Glycol (miraLAX PACKET) 17 gm PRN DAILY PRN PO CONSTIPATION; Start 08/13/16 at 22:30 Vitamin D (Vitamin D3) 1,000 unit DAILY PO Last administered on 08/14/16 09:25 ; Start 08/14/16 at 09:00 Ondansetron HCl (Zofran) 4 mg PRN Q4HRS PRN IV NAUSEA/VOMITING; Start 08/13/16 at 22:30 Aspirin (Dread Aspirin) 325 mg BID PO Last administered on 08/14/16 09:25; Start 08/14/16 at 09:00 Magnesium Hydroxide (Milk Of Magnesia) 2,400 mg 1X PRN PRN PO CONSTIPATION; Start 08/14/16 at 06:00; Stop 08/15/16 at 05:59 Bisacodyl (Dulcolax Supp) 10 mg 1X PRN PRN [place] CONSTIPATION; Start 08/14/16 at 16:00; Stop 08/15/16 at 15:59 Morphine Sulfate 4 mg PRN Q2HR PRN IV PAIN; Start 08/13/16 at 22:30; Stop 08/14 at 12:41; Status DC Dextrose (Dextrose 50%-Water Syringe) 12.5 gm PRN Q15MIN PRN IV SEE COMMENTS; Start 08/13/16 at 22:30 Cefazolin Sodium/ Dextrose 50 ml @ 100 mls/hr Q6H IV Last administered on 08/14 05:38; Start 08/13/16 at 23:30; Stop 08/14/16 at 11:59; Status DC Calcium Carbonate/ Glycine (Oscal) 500 mg TIDAFTMEAL PO Last administered on 12:10; Start 08/14/16 at 09:00 Diphenhydramine HCl (Benadryl) 50 mg PRN Q6HRS PRN PO ITCHING; Start 08/14/16 at 00:00; Status UNV Diphenhydramine HCl (Benadryl) 50 mg PRN Q6HRS PRN IVP ITCHING Last administered on 08/14/16 05:38; Start 08/14/16 at 00:00 Oxycodone HCl (Roxicodone) 10 mg PRN Q3HRS PRN PO PAIN Last administered on 12:10; Start 08/14/16 at 11:45 Folic Acid (Folic Acid) 4 mg DAILY PO ; Start 08/14/16 at 13:00 Methotrexate (Rheumatrex) 25 mg WEEKLY PO ; Start 08/20/16 at 09:00 Sertraline HCl (Zoloft) 50 mg DAILY PO ; Start 08/14/16 at 13:00 Prednisone (Prednisone) 7.5 mg DAILY PO ; Start 08/14/16 at 13:00 Enoxaparin Sodium (Lovenox 40mg Syringe) 40 mg DAILY16 SQ ; Start 08/14/16 at 16 :00 Active Scripts Active Reported Actemra (Tocilizumab) 80 Mg/4 Ml Vial 80 Mg IV Prednisone 2.5 Mg Tablet 3 Tab PO DAILY Sertraline Hcl 50 Mg Tablet 50 Mg PO DAILY Methotrexate (Methotrexate Sodium) 2.5 Mg Tablet 10 Tab PO WEEKLY Folic Acid 1 Mg Tablet 4 Tab PO DAILY Allergies Allergies: Coded Allergies: acetaminophen (Verified Allergy, Intermediate, itching, 08/14/16) codeine (Verified Adverse Reaction, Intermediate, Hypertension, 08/14/16) hydrocodone (Verified Adverse Reaction, Intermediate, Hypertension, ) ROS Musculoskeletal: Yes Other (right leg pain) Physical Exam General: Alert, Cooperative, No acute distress HEENT: Atraumatic Lungs: Normal air movement Heart: Regular rate Abdomen: Soft Extremities: Other (right thigh with dressing) Neuro: Normal speech Vitals VITALS Vital Signs Date Time Temp Pulse Resp B/P (MAP) Pulse Ox O2 Delivery O2 Flow Rate FiO2 08/14/16 11:00 97.7 69 16 109/72 (84) 92 Nasal Cannula 2.0 97.7 Labs Labs Laboratory Tests Test 08/13/16 18:30 08/14/16 04:05 White Blood Count 12.9 x10^3/uL (4.0-11.0) Red Blood Count 4.73 x10^6/uL (3.50-5.40) Hemoglobin 14.7 g/dL (12.0-15.5) 11.6 g/dL (12.0-15.5) Hematocrit 44.9 % (36.0-47.0) 35.6 % (36.0-47.0) Mean Corpuscular Volume 95 fL (79-100) Mean Corpuscular Hemoglobin 31 pg (25-35) Mean Corpuscular Hemoglobin Concent 33 g/dL (31-37) 33 g/dL (31-37) Red Cell Distribution Width 13.6 % (11.5-14.5) Platelet Count 192 x10^3/uL (140-400) Neutrophils (%) (Auto) 76 % (31-73) Lymphocytes (%) (Auto) 18 % (24-48) Monocytes (%) (Auto) 6 % (0-9) Eosinophils (%) (Auto) 0 % (0-3) Basophils (%) (Auto) 1 % (0-3) Neutrophils # (Auto) 9.8 x10^3uL (1.8-7.7) Lymphocytes # (Auto) 2.3 x10^3/uL (1.0-4.8) Monocytes # (Auto) 0.7 x10^3/uL (0.0-1.1) Eosinophils # (Auto) 0.0 x10^3/uL (0.0-0.7) Basophils # (Auto) 0.1 x10^3/uL (0.0-0.2) Sodium Level 140 mmol/L (136-145) Potassium Level 4.4 mmol/L (3.5-5.1) Chloride Level 104 mmol/L (98-107) Carbon Dioxide Level 26 mmol/L (21-32) Anion Gap 10 (6-14) Blood Urea Nitrogen 27 mg/dL (7-20) Creatinine 1.1 mg/dL (0.6-1.0) Estimated GFR (Cockcroft-Gault) 50.7 Glucose Level 153 mg/dL (70-99) Calcium Level 9.4 mg/dL (8.5-10.1) Laboratory Tests Test 08/13/16 18:30 08/14/16 04:05 White Blood Count 12.9 x10^3/uL (4.0-11.0) Red Blood Count 4.73 x10^6/uL (3.50-5.40) Hemoglobin 14.7 g/dL (12.0-15.5) 11.6 g/dL (12.0-15.5) Hematocrit 44.9 % (36.0-47.0) 35.6 % (36.0-47.0) Mean Corpuscular Volume 95 fL (79-100) Mean Corpuscular Hemoglobin 31 pg (25-35) Mean Corpuscular Hemoglobin Concent 33 g/dL (31-37) 33 g/dL (31-37) Red Cell Distribution Width 13.6 % (11.5-14.5) Platelet Count 192 x10^3/uL (140-400) Neutrophils (%) (Auto) 76 % (31-73) Lymphocytes (%) (Auto) 18 % (24-48) Monocytes (%) (Auto) 6 % (0-9) Eosinophils (%) (Auto) 0 % (0-3) Basophils (%) (Auto) 1 % (0-3) Neutrophils # (Auto) 9.8 x10^3uL (1.8-7.7) Lymphocytes # (Auto) 2.3 x10^3/uL (1.0-4.8) Monocytes # (Auto) 0.7 x10^3/uL (0.0-1.1) Eosinophils # (Auto) 0.0 x10^3/uL (0.0-0.7) Basophils # (Auto) 0.1 x10^3/uL (0.0-0.2) Sodium Level 140 mmol/L (136-145) Potassium Level 4.4 mmol/L (3.5-5.1) Chloride Level 104 mmol/L (98-107) Carbon Dioxide Level 26 mmol/L (21-32) Anion Gap 10 (6-14) Blood Urea Nitrogen 27 mg/dL (7-20) Creatinine 1.1 mg/dL (0.6-1.0) Estimated GFR (Cockcroft-Gault) 50.7 Glucose Level 153 mg/dL (70-99) Calcium Level 9.4 mg/dL (8.5-10.1) Images Images admission films reviewed Assessment/Plan Assessment/Plan right femur fracture following a fall at home no evidence of chest or abdominal injury will sign off happy to see again if needed Thank you for asking us to see this nice ladNELSON Alba MD August 14, 2016 14:36
[2016-08-14] MEDS ORDERED: BISACODYL 10 MG SUPP.RECT. PR PRN (16:00)
[2016-08-14] MEDS: ENOXAPARIN 40 MG/0.4 ML SYRINGE. SQ SCH (16:03)
--- NOTE | 2016-08-14 19:03 | PDOC ---
PROGRESS NOTES Subjective Subjective Doing well. Pain is controlled. Patient states she is not allergic to acetaminophen. hydrocodone makes her itch. Objective Vital Signs Vital Signs Date Time Temp Pulse Resp B/P (MAP) Pulse Ox O2 Delivery O2 Flow Rate FiO2 08/14/16 15:00 97.9 63 18 127/73 (91) 94 Nasal Cannula 2.0 97.9 Physical Exam Postop dressing dry and intact. Calf soft and nontender with negative Maria Elena's sign. Good dorsiflexion and plantarflexion with no evidence of neurovascular injury. Peripheral pulses and light touch sensation intact. Labs Laboratory Tests Test 08/13/16 18:30 08/14/16 04:05 White Blood Count 12.9 x10^3/uL (4.0-11.0) Red Blood Count 4.73 x10^6/uL (3.50-5.40) Hemoglobin 14.7 g/dL (12.0-15.5) 11.6 g/dL (12.0-15.5) Hematocrit 44.9 % (36.0-47.0) 35.6 % (36.0-47.0) Mean Corpuscular Volume 95 fL (79-100) Mean Corpuscular Hemoglobin 31 pg (25-35) Mean Corpuscular Hemoglobin Concent 33 g/dL (31-37) 33 g/dL (31-37) Red Cell Distribution Width 13.6 % (11.5-14.5) Platelet Count 192 x10^3/uL (140-400) Neutrophils (%) (Auto) 76 % (31-73) Lymphocytes (%) (Auto) 18 % (24-48) Monocytes (%) (Auto) 6 % (0-9) Eosinophils (%) (Auto) 0 % (0-3) Basophils (%) (Auto) 1 % (0-3) Neutrophils # (Auto) 9.8 x10^3uL (1.8-7.7) Lymphocytes # (Auto) 2.3 x10^3/uL (1.0-4.8) Monocytes # (Auto) 0.7 x10^3/uL (0.0-1.1) Eosinophils # (Auto) 0.0 x10^3/uL (0.0-0.7) Basophils # (Auto) 0.1 x10^3/uL (0.0-0.2) Sodium Level 140 mmol/L (136-145) Potassium Level 4.4 mmol/L (3.5-5.1) Chloride Level 104 mmol/L (98-107) Carbon Dioxide Level 26 mmol/L (21-32) Anion Gap 10 (6-14) Blood Urea Nitrogen 27 mg/dL (7-20) Creatinine 1.1 mg/dL (0.6-1.0) Estimated GFR (Cockcroft-Gault) 50.7 Glucose Level 153 mg/dL (70-99) Calcium Level 9.4 mg/dL (8.5-10.1) Laboratory Tests Test 08/14/16 04:05 Hemoglobin 11.6 g/dL (12.0-15.5) Hematocrit 35.6 % (36.0-47.0) Mean Corpuscular Hemoglobin Concent 33 g/dL (31-37) Assessment Assessment POD #1 right femoral nail Problems: Plan Plan of Care Continue POC including DVT ppx and therapy. Partial weightbearing up to 50% on the RLE as tolerated. GRISEL WALSH August 14, 2016 19:03
--- NOTE | 2016-08-14 22:51 | CONS ---
DATE OF CONSULTATION: 08/14/2016 TRAUMA SURGERY CONSULTATION REFERRING PHYSICIANS: Jad Jacobs M.D., Juan Mckeon M.D., Natasha Lyons DO Thank you for the consult. CHIEF COMPLAINT: Right hip pain. DIAGNOSIS: Right hip fracture, status post fall. HISTORY OF PRESENT ILLNESS: This is a very pleasant 61-year-old female who reports walking down 6 steps and the area was wet and she had poor footing and fell on the third step, hit her right hip against the concrete button. She had severe acute pain at that time. She denies previous problems with falls. Denies any head trauma. She is seen in the hospital room and reports feeling much better after her operative intervention and denies any other complaints except for incisional pain. ALLERGIES: She has an allergy to TYLENOL, CODEINE AND HYDROCODONE, THESE CAUSED NAUSEA AND ITCHING. MEDICATIONS: Include prednisone, methotrexate, Zoloft, multiple vitamins, probiotics. PAST MEDICAL HISTORY: Rheumatoid arthritis, history of WPW. PAST SURGICAL HISTORY: Includes hysterectomy, tonsillectomy, cholecystectomy, shoulder surgery and recent right hip pinning. SOCIAL HISTORY: No tobacco, no significant alcohol use. FAMILY HISTORY: Noncontributory. REVIEW OF SYSTEMS: All systems reviewed and negative except for HPI. PHYSICAL EXAMINATION: GENERAL: Well-developed, well-nourished female in no obvious distress. She is awake, alert and appropriate. She is oriented x 3. HEENT: Normocephalic, atraumatic. Pupils equal. Extraocular motions intact. Anicteric sclerae. No midface instability. Oropharynx is clear. NECK: Supple. Trachea is midline. No C-spine step-offs or deformities. CHEST: Stable, nontender on palpation. ABDOMEN: Soft, nondistended, nontender to palpation. EXTREMITIES: She is neurovascularly intact in the upper and lower extremities. Good pulses. VITAL SIGNS: She is afebrile. Vital signs within normal limits. LABORATORY DATA: White blood cell count is 12.9, otherwise labs are essentially unremarkable. Chest x-ray is unremarkable. Femur x-ray demonstrates a fracture. IMPRESSION AND RECOMMENDATIONS: A 61-year-old female with status post fall with the right hip fracture. She appears to be doing well. I agree with care per orthopedics no additional imaging is necessary at this time. We will be available if additional intervention is needed. Thank you for allowing participation in the care of this pleasant patient. Sincerely, PETER JUAREZ MD DR: KIARA/adán JOB#: [id number] / [id number] NATASHA Sanchez John MD WHITE, HUNTER MD MTDD
[2016-08-15] MEDS: oxyCODONE IR 5 MG TABLET PO PRN ×6 (01:09→21:18)
[2016-08-15 03:00] VITALS: BP 137/48
[2016-08-15] MEDS: diphenhydrAMINE 50 MG/ML VIAL IVP PRN ×2 (04:15→12:18)
[2016-08-15 07:00] VITALS: BP 138/75
[2016-08-15] MEDS: predniSONE 5 MG TABLET PO SCH (09:00)
[2016-08-15] MEDS: SERTRALINE 50 MG TABLET. PO SCH (09:00)
[2016-08-15] MEDS: FOLIC ACID 1 MG TABLET. PO SCH (09:00)
[2016-08-15] MEDS: CHOLECALCIFEROL (VITAMIN D3) 1,000 UNIT TABLET PO SCH (09:15)
[2016-08-15] MEDS: ASPIRIN 325 MG TABLET PO SCH ×2 (09:15→21:01)
[2016-08-15] MEDS: CALCIUM CARBONATE 500 MG TABLET PO SCH ×3 (09:15→19:29)
[2016-08-15] MEDS: SENNOSIDES/DOCUSATE 8.6/50MG TABLET. PO SCH (09:15)
[2016-08-15] MEDS: MORPHINE SULFATE 2 MG/ML DISP.SYRIN. IV PRN (10:19)
[2016-08-15] MEDS: traMADol 50 MG TABLET PO PRN ×2 (10:19→19:32)
[2016-08-15 11:00] VITALS: BP 118/67
--- NOTE | 2016-08-15 11:25 | PDOC ---
PROGRESS NOTES Chief Complaint Chief Complaint cc: fall A/P 1. Comminuted displaced right femoral shaft fractures, status post open reduction and internal fixation by Dr. Jacobs. 2. Deep venous thrombosis prophylaxis. 3. Rheumatoid arthritis. plan Pain control PRN iv morphine PT/OT DVT prophylaxis labs reviewed, SNU placement Vitals Vitals Vital Signs Date Time Temp Pulse Resp B/P (MAP) Pulse Ox O2 Delivery O2 Flow Rate FiO2 08/15/16 07:00 97.4 55 20 138/75 (96) 97 Nasal Cannula 2.0 97.4 Physical Exam General: Alert, Oriented X3, Cooperative, No acute distress Heart: Regular rate Lungs: Clear Abdomen: Normal bowel sounds, Soft Extremities: Other (right thigh with dressing) Skin: No significant lesion Comment Review of Relevant I have reviewed the following items mindy (where applicable) has been applied. Labs Laboratory Tests Test 08/13/16 18:30 08/14/16 04:05 White Blood Count 12.9 x10^3/uL (4.0-11.0) Red Blood Count 4.73 x10^6/uL (3.50-5.40) Hemoglobin 14.7 g/dL (12.0-15.5) 11.6 g/dL (12.0-15.5) Hematocrit 44.9 % (36.0-47.0) 35.6 % (36.0-47.0) Mean Corpuscular Volume 95 fL (79-100) Mean Corpuscular Hemoglobin 31 pg (25-35) Mean Corpuscular Hemoglobin Concent 33 g/dL (31-37) 33 g/dL (31-37) Red Cell Distribution Width 13.6 % (11.5-14.5) Platelet Count 192 x10^3/uL (140-400) Neutrophils (%) (Auto) 76 % (31-73) Lymphocytes (%) (Auto) 18 % (24-48) Monocytes (%) (Auto) 6 % (0-9) Eosinophils (%) (Auto) 0 % (0-3) Basophils (%) (Auto) 1 % (0-3) Neutrophils # (Auto) 9.8 x10^3uL (1.8-7.7) Lymphocytes # (Auto) 2.3 x10^3/uL (1.0-4.8) Monocytes # (Auto) 0.7 x10^3/uL (0.0-1.1) Eosinophils # (Auto) 0.0 x10^3/uL (0.0-0.7) Basophils # (Auto) 0.1 x10^3/uL (0.0-0.2) Sodium Level 140 mmol/L (136-145) Potassium Level 4.4 mmol/L (3.5-5.1) Chloride Level 104 mmol/L (98-107) Carbon Dioxide Level 26 mmol/L (21-32) Anion Gap 10 (6-14) Blood Urea Nitrogen 27 mg/dL (7-20) Creatinine 1.1 mg/dL (0.6-1.0) Estimated GFR (Cockcroft-Gault) 50.7 Glucose Level 153 mg/dL (70-99) Calcium Level 9.4 mg/dL (8.5-10.1) 25-Hydroxy Vitamin D Total 32.7 ng/mL (30.0-100.0) Medications Current Medications Morphine Sulfate 4 mg STK-MED ONCE .ROUTE ; Start 08/13/16 at 18:28; Stop at 18:29; Status DC Fentanyl Citrate (Fentanyl 2ml Vial) 75 mcg PRN Q15MIN PRN IV PAIN GREATER THAN 3/10 Last administered on 08/13/16 19:46; Start 08/13/16 at 18:45; Stop at 12:41; Status DC Ondansetron HCl (Zofran) 4 mg 1X ONCE IV Last administered on 08/13/16 19:07 ; Start 08/13/16 at 18:45; Stop 08/13/16 at 19:01; Status DC Lorazepam (Ativan) 1 mg 1X ONCE IV ; Start 08/13/16 at 18:45; Stop 08/13/16 at 19:01; Status DC Diazepam (Valium) 2 mg 1X ONCE IV Last administered on 08/13/16 19:09; Start 08/13/16 at 19:00; Stop 08/13/16 at 19:01; Status DC Ondansetron HCl (Zofran) 4 mg PRN Q8HRS PRN IV NAUSEA/VOMITING; Start 08/13/16 at 19:30; Stop 08/14/16 at 11:40; Status DC Fentanyl Citrate (Fentanyl 2ml Vial) 50 mcg PRN Q1HR PRN IV PAIN; Start at 19:30; Stop 08/14/16 at 19:29; Status DC Acetaminophen (Tylenol) 650 mg PRN Q4HRS PRN PO FEVER; Start 08/13/16 at 19:30 ; Stop 08/14/16 at 19:29; Status DC Dexamethasone Sodium Phosphate (Decadron) 20 mg STK-MED ONCE .ROUTE ; Start at 19:54; Stop 08/13/16 at 19:55; Status DC Ondansetron HCl (Zofran) 4 mg STK-MED ONCE .ROUTE ; Start 08/13/16 at 19:54; Stop 08/13/16 at 19:55; Status DC Propofol 20 ml @ As Directed STK-MED ONCE IV ; Start 08/13/16 at 19:54; Stop at 12:41; Status DC Lidocaine HCl (Lidocaine Pf 2% Vial) 5 ml STK-MED ONCE .ROUTE ; Start 08/13/16 at 19:54; Stop 08/13/16 at 19:55; Status DC Desflurane (Suprane) 60 ml STK-MED ONCE IH ; Start 08/13/16 at 19:54; Stop 08/13 at 19:55; Status DC Fentanyl Citrate (Fentanyl 2ml Vial) 100 mcg STK-MED ONCE .ROUTE ; Start at 19:54; Stop 08/13/16 at 19:55; Status DC Midazolam HCl (Versed) 2 mg STK-MED ONCE .ROUTE ; Start 08/13/16 at 19:54; Stop 08/13/16 at 19:55; Status DC Bupivacaine HCl/ Epinephrine Bitart (Marcaine-Epi 0.25%-1:[id number]) 50 ml STK-MED ONCE .ROUTE Last administered on 08/13/16t 22:11; Start 08/13/16 at 20:03; Stop 08/13/16 at 20:04; Status DC Ondansetron HCl (Zofran) 4 mg PRN Q6HRS PRN IV NAUSEA/VOMITING; Start 08/13/16 at 20:15; Stop 08/13/16 at 23:36; Status DC Fentanyl Citrate (Fentanyl 2ml Vial) 25 mcg PRN Q5MIN PRN IV MILD PAIN Last administered on 08/13/16 22:37; Start 08/13/16 at 20:15; Stop 08/14/16 at 12:41 ; Status DC Fentanyl Citrate (Fentanyl 2ml Vial) 50 mcg PRN Q5MIN PRN IV MODERATE PAIN Last administered on 08/13/16 22:43; Start 08/13/16 at 20:15; Stop 08/14/16 at 12:41; Status DC Morphine Sulfate 1 mg PRN Q10MIN PRN IV SEVERE PAIN; Start 08/13/16 at 20:15; Stop 08/14/16 at 12:41; Status DC Ringer's Solution 1,000 ml @ 0 mls/hr Q0M IV ; Start 08/13/16 at 20:05; Stop at 08:04; Status DC Lidocaine HCl 2 ml PRN 1X PRN ID PRIOR TO IV START; Start 08/13/16 at 20:15; Stop 08/14/16 at 12:41; Status DC Hydromorphone HCl (Dilaudid) 0.5 mg PRN Q10MIN PRN IV SEV PAIN, Second choice Last administered on 08/13/16 23:05; Start 08/13/16 at 20:15; Stop 08/14/16 at 12:41; Status DC Prochlorperazine Edisylate (Compazine) 5 mg PACU PRN PRN IV NAUSEA, MRX1; Start 08/13/16 at 20:15; Stop 08/14/16 at 20:14; Status DC Hydrocortisone Sodium Succinate (Solu-CORTEF) 100 mg STK-MED ONCE .ROUTE ; Start 08/13/16 at 20:25; Stop 08/13/16 at 20:26; Status DC Cefazolin Sodium/ Dextrose 50 ml @ 100 mls/hr 1X PREOP IV Last administered on 08/13/16 20:56; Start 08/13/16 at 20:45; Stop 08/14/16 at 13:43; Status DC Phenylephrine HCl 1 mg STK-MED ONCE IV ; Start 08/13/16 at 20:43; Stop 08/13/16 at 20:44; Status DC Tramadol HCl (Ultram) 50 mg PRN QID PRN PO PAIN Last administered on 08/15/16 10:19; Start 08/13/16 at 22:30 Oxycodone HCl (Roxicodone) 5 mg PRN Q3HRS PRN PO PAIN Last administered on 08/14 09:25; Start 08/13/16 at 22:30 Morphine Sulfate 2 mg PRN Q1HR PRN IV PAIN Last administered on 08/15/16 10:19 ; Start 08/13/16 at 22:30 Fentanyl Citrate (Fentanyl 2ml Vial) 25 mcg PRN Q1HR PRN IV PAIN; Start at 22:30; Stop 08/14/16 at 12:41; Status DC Senna/Docusate Sodium (Senna Plus) 1 tab DAILY PO Last administered on 09:15; Start 08/14/16 at 09:00 Polyethylene Glycol (miraLAX PACKET) 17 gm PRN DAILY PRN PO CONSTIPATION; Start 08/13/16 at 22:30 Vitamin D (Vitamin D3) 1,000 unit DAILY PO Last administered on 08/15/16 09:15 ; Start 08/14/16 at 09:00 Ondansetron HCl (Zofran) 4 mg PRN Q4HRS PRN IV NAUSEA/VOMITING; Start 08/13/16 at 22:30 Aspirin ([employer] Aspirin) 325 mg BID PO Last administered on 08/15/16 09:15; Start 08/14/16 at 09:00 Magnesium Hydroxide (Milk Of Magnesia) 2,400 mg 1X PRN PRN PO CONSTIPATION; Start 08/14/16 at 06:00; Stop 08/15/16 at 05:59; Status DC Bisacodyl (Dulcolax Supp) 10 mg 1X PRN PRN [place] CONSTIPATION; Start 08/14/16 at 16:00; Stop 08/15/16 at 15:59 Morphine Sulfate 4 mg PRN Q2HR PRN IV PAIN; Start 08/13/16 at 22:30; Stop 08/14 at 12:41; Status DC Dextrose (Dextrose 50%-Water Syringe) 12.5 gm PRN Q15MIN PRN IV SEE COMMENTS; Start 08/13/16 at 22:30 Cefazolin Sodium/ Dextrose 50 ml @ 100 mls/hr Q6H IV Last administered on 08/14 05:38; Start 08/13/16 at 23:30; Stop 08/14/16 at 11:59; Status DC Calcium Carbonate/ Glycine (Oscal) 500 mg TIDAFTMEAL PO Last administered on 09:15; Start 08/14/16 at 09:00 Diphenhydramine HCl (Benadryl) 50 mg PRN Q6HRS PRN PO ITCHING; Start 08/14/16 at 00:00; Status UNV Diphenhydramine HCl (Benadryl) 50 mg PRN Q6HRS PRN IVP ITCHING Last administered on 08/15/16 04:15; Start 08/14/16 at 00:00 Oxycodone HCl (Roxicodone) 10 mg PRN Q3HRS PRN PO PAIN Last administered on 09:16; Start 08/14/16 at 11:45 Folic Acid (Folic Acid) 4 mg DAILY PO ; Start 08/14/16 at 13:00 Methotrexate (Rheumatrex) 25 mg WEEKLY PO ; Start 08/20/16 at 09:00 Sertraline HCl (Zoloft) 50 mg DAILY PO ; Start 08/14/16 at 13:00 Prednisone (Prednisone) 7.5 mg DAILY PO ; Start 08/14/16 at 13:00 Enoxaparin Sodium (Lovenox 40mg Syringe) 40 mg DAILY16 SQ Last administered on 08/14/16 16:03; Start 08/14/16 at 16:00 Active Scripts Active Reported Actemra (Tocilizumab) 80 Mg/4 Ml Vial 80 Mg IV Prednisone 2.5 Mg Tablet 3 Tab PO DAILY Sertraline Hcl 50 Mg Tablet 50 Mg PO DAILY Methotrexate (Methotrexate Sodium) 2.5 Mg Tablet 10 Tab PO WEEKLY Folic Acid 1 Mg Tablet 4 Tab PO DAILY Vitals/I & O Vital Sign - Last 24 Hours 08/14/16 08/14/16 08/14/16 08/14/16 15:00 19:00 20:10 20:11 Temp 97.9 98.2 97.9 98.2 Pulse 63 61 Resp 18 18 18 B/P (MAP) 127/73 (91) 138/70 (92) Pulse Ox 94 91 O2 Delivery Nasal Cannula Nasal Cannula Room Air Room Air O2 Flow Rate 2.0 2.0 08/14/16 08/15/16 08/15/16/24/17 23:00 01:09 03:00 04:18 Temp 98.3 97.8 98.3 97.8 Pulse 61 55 Resp 18 18 18 18 B/P (MAP) 107/69 (82) 137/48 (77) Pulse Ox 94 100 O2 Delivery Nasal Cannula Nasal Cannula Nasal Cannula Nasal Cannula O2 Flow Rate 2.0 2.0 2.0 2.0 08/15/16 08/15/16 05:18 07:00 Temp 97.4 97.4 Pulse 55 Resp 18 20 B/P (MAP) 138/75 (96) Pulse Ox 97 O2 Delivery Nasal Cannula Nasal Cannula O2 Flow Rate 2.0 2.0 Intake and Output 08/14/16 08/14/16 08/15/16 15:00 23:00 07:00 Intake Total 240 ml Output Total 325 ml 550 ml Balance -325 ml -310 ml RON AGUERO MD August 15, 2016 11:25
--- NOTE | 2016-08-15 12:06 | PDOC ---
Provider Note Provider Note SURG no gen surg needs will sign off please call if needed Thank you NELSON SUMNER MD August 15, 2016 12:06
[2016-08-15 15:00] VITALS: BP 111/67
[2016-08-15] MEDS: ENOXAPARIN 40 MG/0.4 ML SYRINGE. SQ SCH (16:26)
[2016-08-15 19:00] VITALS: BP 99/51
--- NOTE | 2016-08-15 19:11 | PDOC ---
PROGRESS NOTES Subjective Subjective More pain today than yesterday. Objective Vital Signs Vital Signs Date Time Temp Pulse Resp B/P (MAP) Pulse Ox O2 Delivery O2 Flow Rate FiO2 08/15/16 15:00 97.7 69 18 111/67 (82) 91 Room Air 97.7 08/15/16 11:00 2.0 Physical Exam Dressing dry and intact. Calf soft and nontender with negative Maria Elena's. Good df/ pf with no sign of neurovascular injury. SILT. +dp Labs Laboratory Tests Test 08/14/16 04:05 Hemoglobin 11.6 g/dL (12.0-15.5) Hematocrit 35.6 % (36.0-47.0) Mean Corpuscular Hemoglobin Concent 33 g/dL (31-37) Assessment Assessment POD #2 right femoral nail Problems: Plan Plan of Care Continue POC including DVT ppx and therapy. Possible discharge to home tomorrow with home health depending on pain control and therapy recommendations. *Late entry, the patient was seen and examined this AM. GRISEL WALSH August 15, 2016 19:11
[2016-08-15 23:00] VITALS: BP 86/45
[2016-08-16] VITALS (14 sets, daily range): BP systolic 89–125; BP diastolic 38–79
[2016-08-16] MEDS: diphenhydrAMINE 50 MG/ML VIAL IVP PRN ×2 (00:19→09:21)
[2016-08-16 08:39] LABS: HEMATOCRIT 23.1 % (36.0-47.0); HEMOGLOBIN 7.9 g/dL (12.0-15.5)
[2016-08-16] MEDS: FOLIC ACID 1 MG TABLET. PO SCH (09:00)
[2016-08-16] MEDS: predniSONE 5 MG TABLET PO SCH (09:00)
[2016-08-16] MEDS: ASPIRIN 325 MG TABLET PO SCH ×2 (09:18→22:09)
[2016-08-16] MEDS: SENNOSIDES/DOCUSATE 8.6/50MG TABLET. PO SCH (09:19)
[2016-08-16] MEDS: CHOLECALCIFEROL (VITAMIN D3) 1,000 UNIT TABLET PO SCH (09:19)
[2016-08-16] MEDS: CALCIUM CARBONATE 500 MG TABLET PO SCH ×3 (09:19→17:51)
[2016-08-16] MEDS: SERTRALINE 50 MG TABLET. PO SCH (09:19)
[2016-08-16] MEDS: oxyCODONE IR 5 MG TABLET PO PRN ×2 (09:20→12:16)
[2016-08-16 10:08] LABS: BASO % 1 % (0-3); EOS % 1 % (0-3); HEMATOCRIT 21.7 % (36.0-47.0); HEMOGLOBIN 7.9 g/dL (12.0-15.5); LYMPH # 2.8 x10^3/uL (1.0-4.8); LYMPH % 37 % (24-48); MEAN CORPUSCULAR HEMOGLOBIN 34 pg (25-35); MEAN CORPUSCULAR HGB CONC 37 g/dL (31-37); MEAN CORPUSCULAR VOLUME 93 fL (79-100); MONO % 8 % (0-9); NEUT % 53 % (31-73); PLATELET COUNT 116 x10^3/uL (140-400); RED BLOOD COUNT 2.32 x10^6/uL (3.50-5.40); RED CELL DISTRIBUTION WIDTH 13.6 % (11.5-14.5); WHITE BLOOD COUNT 7.5 x10^3/uL (4.0-11.0)
[2016-08-16 10:18] LABS: ALBUMIN 3.2 g/dL (3.4-5.0); ALBUMIN/GLOBULIN RATIO 1.3 (1.0-1.7); CALCIUM 8.6 mg/dL (8.5-10.1); CREATININE 0.9 mg/dL (0.6-1.0); GFR 63.9; TOTAL BILIRUBIN 0.2 mg/dL (0.2-1.0); TOTAL PROTEIN 5.7 g/dL (6.4-8.2)
--- NOTE | 2016-08-16 12:49 | PDOC ---
PROGRESS NOTES Chief Complaint Chief Complaint 1. R femur fracture 2. WPW-cardio 3. Depression 4. Rheumatoid arthritis 5. Cholecystectomy 6. Tonsillectomy 7. Hysterectomy History of Present Illness History of Present Illness Patient seen this afternoon in in [facility]. Family members present. Daughter mentioned low hemoglobin trend. We have decided to transfuse 2 units PRBC. Will check H&H tomorrow morning. Patient requested to be off Benadryl and requests different pain medication. Will switch to 5 mg Hydrocodone q4hr prn pain. Discussed with patient about probable D/C tomorrow. Patient understands plan of action. Vitals Vitals Vital Signs Date Time Temp Pulse Resp B/P (MAP) Pulse Ox O2 Delivery O2 Flow Rate FiO2 08/16/16 12:16 Nasal Cannula 2.0 08/16/16 11:00 97.7 64 18 93/48 (63) 100 97.7 Physical Exam General: Alert, Oriented X3, Cooperative, No acute distress Heart: Regular rate, Normal S1, Normal S2 Lungs: Clear Abdomen: Normal bowel sounds, Soft Extremities: No clubbing, No cyanosis, No edema, Other (right thigh with dressing) Skin: No rashes, No significant lesion Labs LABS Laboratory Tests Test 08/16/16 08:10 White Blood Count 7.5 x10^3/uL (4.0-11.0) Red Blood Count 2.32 x10^6/uL (3.50-5.40) Hemoglobin 7.9 g/dL (12.0-15.5) Hematocrit 21.7 % (36.0-47.0) Mean Corpuscular Volume 93 fL (79-100) Mean Corpuscular Hemoglobin 34 pg (25-35) Mean Corpuscular Hemoglobin Concent 37 g/dL (31-37) Red Cell Distribution Width 13.6 % (11.5-14.5) Platelet Count 116 x10^3/uL (140-400) Neutrophils (%) (Auto) 53 % (31-73) Lymphocytes (%) (Auto) 37 % (24-48) Monocytes (%) (Auto) 8 % (0-9) Eosinophils (%) (Auto) 1 % (0-3) Basophils (%) (Auto) 1 % (0-3) Neutrophils # (Auto) 4.0 x10^3uL (1.8-7.7) Lymphocytes # (Auto) 2.8 x10^3/uL (1.0-4.8) Monocytes # (Auto) 0.6 x10^3/uL (0.0-1.1) Eosinophils # (Auto) 0.1 x10^3/uL (0.0-0.7) Basophils # (Auto) 0.0 x10^3/uL (0.0-0.2) Sodium Level 139 mmol/L (136-145) Potassium Level 4.0 mmol/L (3.5-5.1) Chloride Level 101 mmol/L (98-107) Carbon Dioxide Level 33 mmol/L (21-32) Anion Gap 5 (6-14) Blood Urea Nitrogen 18 mg/dL (7-20) Creatinine 0.9 mg/dL (0.6-1.0) Estimated GFR (Cockcroft-Gault) 63.9 BUN/Creatinine Ratio 20 (6-20) Glucose Level 99 mg/dL (70-99) Calcium Level 8.6 mg/dL (8.5-10.1) Total Bilirubin 0.2 mg/dL (0.2-1.0) Aspartate Amino Transf (AST/SGOT) 20 U/L (15-37) Alanine Aminotransferase (ALT/SGPT) 22 U/L (14-59) Alkaline Phosphatase 37 U/L (46-116) Total Protein 5.7 g/dL (6.4-8.2) Albumin 3.2 g/dL (3.4-5.0) Albumin/Globulin Ratio 1.3 (1.0-1.7) Review of Systems Review of Systems No GORDILLO/blurry vision No SOB No JVD No chest pain No rashes Assessment and Plan Assessmemt and Plan Assessment: 1. R femur fracture 2. WPW-cardio 3. Depression 4. Rheumatoid arthritis 5. Cholecystectomy 6. Tonsillectomy 7. Hysterectomy Plan: -Continue current medications and adjust accordingly as needed. -Discontinue Benadryl. -Change pain meds to 5 mg Hydrocodone q4hr prn pain. -Continue PT/OT as tolerated. -Continue specialty consultation. -Transfuse 2 units PRBC. Hemoglobin at 7.9. -Get H&H tomorrow morning to check hemoglobin. -Probable D/C tomorrow if specialties agree. Problems: Comment Review of Relevant I have reviewed the following items mindy (where applicable) has been applied. Labs Laboratory Tests Test 08/16/16 08:10 White Blood Count 7.5 x10^3/uL (4.0-11.0) Red Blood Count 2.32 x10^6/uL (3.50-5.40) Hemoglobin 7.9 g/dL (12.0-15.5) Hematocrit 21.7 % (36.0-47.0) Mean Corpuscular Volume 93 fL (79-100) Mean Corpuscular Hemoglobin 34 pg (25-35) Mean Corpuscular Hemoglobin Concent 37 g/dL (31-37) Red Cell Distribution Width 13.6 % (11.5-14.5) Platelet Count 116 x10^3/uL (140-400) Neutrophils (%) (Auto) 53 % (31-73) Lymphocytes (%) (Auto) 37 % (24-48) Monocytes (%) (Auto) 8 % (0-9) Eosinophils (%) (Auto) 1 % (0-3) Basophils (%) (Auto) 1 % (0-3) Neutrophils # (Auto) 4.0 x10^3uL (1.8-7.7) Lymphocytes # (Auto) 2.8 x10^3/uL (1.0-4.8) Monocytes # (Auto) 0.6 x10^3/uL (0.0-1.1) Eosinophils # (Auto) 0.1 x10^3/uL (0.0-0.7) Basophils # (Auto) 0.0 x10^3/uL (0.0-0.2) Sodium Level 139 mmol/L (136-145) Potassium Level 4.0 mmol/L (3.5-5.1) Chloride Level 101 mmol/L (98-107) Carbon Dioxide Level 33 mmol/L (21-32) Anion Gap 5 (6-14) Blood Urea Nitrogen 18 mg/dL (7-20) Creatinine 0.9 mg/dL (0.6-1.0) Estimated GFR (Cockcroft-Gault) 63.9 BUN/Creatinine Ratio 20 (6-20) Glucose Level 99 mg/dL (70-99) Calcium Level 8.6 mg/dL (8.5-10.1) Total Bilirubin 0.2 mg/dL (0.2-1.0) Aspartate Amino Transf (AST/SGOT) 20 U/L (15-37) Alanine Aminotransferase (ALT/SGPT) 22 U/L (14-59) Alkaline Phosphatase 37 U/L (46-116) Total Protein 5.7 g/dL (6.4-8.2) Albumin 3.2 g/dL (3.4-5.0) Albumin/Globulin Ratio 1.3 (1.0-1.7) Laboratory Tests Test 08/16/16 08:10 White Blood Count 7.5 x10^3/uL (4.0-11.0) Red Blood Count 2.32 x10^6/uL (3.50-5.40) Hemoglobin 7.9 g/dL (12.0-15.5) Hematocrit 21.7 % (36.0-47.0) Mean Corpuscular Volume 93 fL (79-100) Mean Corpuscular Hemoglobin 34 pg (25-35) Mean Corpuscular Hemoglobin Concent 37 g/dL (31-37) Red Cell Distribution Width 13.6 % (11.5-14.5) Platelet Count 116 x10^3/uL (140-400) Neutrophils (%) (Auto) 53 % (31-73) Lymphocytes (%) (Auto) 37 % (24-48) Monocytes (%) (Auto) 8 % (0-9) Eosinophils (%) (Auto) 1 % (0-3) Basophils (%) (Auto) 1 % (0-3) Neutrophils # (Auto) 4.0 x10^3uL (1.8-7.7) Lymphocytes # (Auto) 2.8 x10^3/uL (1.0-4.8) Monocytes # (Auto) 0.6 x10^3/uL (0.0-1.1) Eosinophils # (Auto) 0.1 x10^3/uL (0.0-0.7) Basophils # (Auto) 0.0 x10^3/uL (0.0-0.2) Sodium Level 139 mmol/L (136-145) Potassium Level 4.0 mmol/L (3.5-5.1) Chloride Level 101 mmol/L (98-107) Carbon Dioxide Level 33 mmol/L (21-32) Anion Gap 5 (6-14) Blood Urea Nitrogen 18 mg/dL (7-20) Creatinine 0.9 mg/dL (0.6-1.0) Estimated GFR (Cockcroft-Gault) 63.9 BUN/Creatinine Ratio 20 (6-20) Glucose Level 99 mg/dL (70-99) Calcium Level 8.6 mg/dL (8.5-10.1) Total Bilirubin 0.2 mg/dL (0.2-1.0) Aspartate Amino Transf (AST/SGOT) 20 U/L (15-37) Alanine Aminotransferase (ALT/SGPT) 22 U/L (14-59) Alkaline Phosphatase 37 U/L (46-116) Total Protein 5.7 g/dL (6.4-8.2) Albumin 3.2 g/dL (3.4-5.0) Albumin/Globulin Ratio 1.3 (1.0-1.7) Medications Current Medications Morphine Sulfate 4 mg STK-MED ONCE .ROUTE ; Start 08/13/16 at 18:28; Stop at 18:29; Status DC Fentanyl Citrate (Fentanyl 2ml Vial) 75 mcg PRN Q15MIN PRN IV PAIN GREATER THAN 3/10 Last administered on 08/13/16 19:46; Start 08/13/16 at 18:45; Stop at 12:41; Status DC Ondansetron HCl (Zofran) 4 mg 1X ONCE IV Last administered on 08/13/16 19:07 ; Start 08/13/16 at 18:45; Stop 08/13/16 at 19:01; Status DC Lorazepam (Ativan) 1 mg 1X ONCE IV ; Start 08/13/16 at 18:45; Stop 08/13/16 at 19:01; Status DC Diazepam (Valium) 2 mg 1X ONCE IV Last administered on 08/13/16 19:09; Start 08/13/16 at 19:00; Stop 08/13/16 at 19:01; Status DC Ondansetron HCl (Zofran) 4 mg PRN Q8HRS PRN IV NAUSEA/VOMITING; Start 08/13/16 at 19:30; Stop 08/14/16 at 11:40; Status DC Fentanyl Citrate (Fentanyl 2ml Vial) 50 mcg PRN Q1HR PRN IV PAIN; Start at 19:30; Stop 08/14/16 at 19:29; Status DC Acetaminophen (Tylenol) 650 mg PRN Q4HRS PRN PO FEVER; Start 08/13/16 at 19:30 ; Stop 08/14/16 at 19:29; Status DC Dexamethasone Sodium Phosphate (Decadron) 20 mg STK-MED ONCE .ROUTE ; Start at 19:54; Stop 08/13/16 at 19:55; Status DC Ondansetron HCl (Zofran) 4 mg STK-MED ONCE .ROUTE ; Start 08/13/16 at 19:54; Stop 08/13/16 at 19:55; Status DC Propofol 20 ml @ As Directed STK-MED ONCE IV ; Start 08/13/16 at 19:54; Stop at 12:41; Status DC Lidocaine HCl (Lidocaine Pf 2% Vial) 5 ml STK-MED ONCE .ROUTE ; Start 08/13/16 at 19:54; Stop 08/13/16 at 19:55; Status DC Desflurane (Suprane) 60 ml STK-MED ONCE IH ; Start 08/13/16 at 19:54; Stop 08/13 at 19:55; Status DC Fentanyl Citrate (Fentanyl 2ml Vial) 100 mcg STK-MED ONCE .ROUTE ; Start at 19:54; Stop 08/13/16 at 19:55; Status DC Midazolam HCl (Versed) 2 mg STK-MED ONCE .ROUTE ; Start 08/13/16 at 19:54; Stop 08/13/16 at 19:55; Status DC Bupivacaine HCl/ Epinephrine Bitart (Marcaine-Epi 0.25%-[id number]) 50 ml STK-MED ONCE .ROUTE Last administered on 08/13/16t 22:11; Start 08/13/16 at 20:03; Stop 08/13/16 at 20:04; Status DC Ondansetron HCl (Zofran) 4 mg PRN Q6HRS PRN IV NAUSEA/VOMITING; Start 08/13/16 at 20:15; Stop 08/13/16 at 23:36; Status DC Fentanyl Citrate (Fentanyl 2ml Vial) 25 mcg PRN Q5MIN PRN IV MILD PAIN Last administered on 08/13/16 22:37; Start 08/13/16 at 20:15; Stop 08/14/16 at 12:41 ; Status DC Fentanyl Citrate (Fentanyl 2ml Vial) 50 mcg PRN Q5MIN PRN IV MODERATE PAIN Last administered on 08/13/16 22:43; Start 08/13/16 at 20:15; Stop 08/14/16 at 12:41; Status DC Morphine Sulfate 1 mg PRN Q10MIN PRN IV SEVERE PAIN; Start 08/13/16 at 20:15; Stop 08/14/16 at 12:41; Status DC Ringer's Solution 1,000 ml @ 0 mls/hr Q0M IV ; Start 08/13/16 at 20:05; Stop at 08:04; Status DC Lidocaine HCl 2 ml PRN 1X PRN ID PRIOR TO IV START; Start 08/13/16 at 20:15; Stop 08/14/16 at 12:41; Status DC Hydromorphone HCl (Dilaudid) 0.5 mg PRN Q10MIN PRN IV SEV PAIN, Second choice Last administered on 08/13/16 23:05; Start 08/13/16 at 20:15; Stop 08/14/16 at 12:41; Status DC Prochlorperazine Edisylate (Compazine) 5 mg PACU PRN PRN IV NAUSEA, MRX1; Start 08/13/16 at 20:15; Stop 08/14/16 at 20:14; Status DC Hydrocortisone Sodium Succinate (Solu-CORTEF) 100 mg STK-MED ONCE .ROUTE ; Start 08/13/16 at 20:25; Stop 08/13/16 at 20:26; Status DC Cefazolin Sodium/ Dextrose 50 ml @ 100 mls/hr 1X PREOP IV Last administered on 08/13/16 20:56; Start 08/13/16 at 20:45; Stop 08/14/16 at 13:43; Status DC Phenylephrine HCl 1 mg STK-MED ONCE IV ; Start 08/13/16 at 20:43; Stop 08/13/16 at 20:44; Status DC Tramadol HCl (Ultram) 50 mg PRN QID PRN PO PAIN Last administered on 08/15/16 19:32; Start 08/13/16 at 22:30 Oxycodone HCl (Roxicodone) 5 mg PRN Q3HRS PRN PO PAIN Last administered on 08/16 12:16; Start 08/13/16 at 22:30 Morphine Sulfate 2 mg PRN Q1HR PRN IV PAIN Last administered on 08/15/16 10:19 ; Start 08/13/16 at 22:30 Fentanyl Citrate (Fentanyl 2ml Vial) 25 mcg PRN Q1HR PRN IV PAIN; Start at 22:30; Stop 08/14/16 at 12:41; Status DC Senna/Docusate Sodium (Senna Plus) 1 tab DAILY PO Last administered on 09:19; Start 08/14/16 at 09:00 Polyethylene Glycol (miraLAX PACKET) 17 gm PRN DAILY PRN PO CONSTIPATION Last administered on 08/15/16 21:01; Start 08/13/16 at 22:30 Vitamin D (Vitamin D3) 1,000 unit DAILY PO Last administered on 08/16/16 09:19 ; Start 08/14/16 at 09:00 Ondansetron HCl (Zofran) 4 mg PRN Q4HRS PRN IV NAUSEA/VOMITING; Start 08/13/16 at 22:30 Aspirin (Brndstr Aspirin) 325 mg BID PO Last administered on 08/16/16 09:18; Start 08/14/16 at 09:00 Magnesium Hydroxide (Milk Of Magnesia) 2,400 mg 1X PRN PRN PO CONSTIPATION; Start 08/14/16 at 06:00; Stop 08/15/16 at 05:59; Status DC Bisacodyl (Dulcolax Supp) 10 mg 1X PRN PRN IA CONSTIPATION; Start 08/14/16 at 16:00; Stop 08/15/16 at 15:59; Status DC Morphine Sulfate 4 mg PRN Q2HR PRN IV PAIN; Start 08/13/16 at 22:30; Stop 08/14 at 12:41; Status DC Dextrose (Dextrose 50%-Water Syringe) 12.5 gm PRN Q15MIN PRN IV SEE COMMENTS; Start 08/13/16 at 22:30 Cefazolin Sodium/ Dextrose 50 ml @ 100 mls/hr Q6H IV Last administered on 08/14 05:38; Start 08/13/16 at 23:30; Stop 08/14/16 at 11:59; Status DC Calcium Carbonate/ Glycine (Oscal) 500 mg TIDAFTMEAL PO Last administered on 09:19; Start 08/14/16 at 09:00 Diphenhydramine HCl (Benadryl) 50 mg PRN Q6HRS PRN PO ITCHING; Start 08/14/16 at 00:00; Status UNV Diphenhydramine HCl (Benadryl) 50 mg PRN Q6HRS PRN IVP ITCHING Last administered on 08/16/16 09:21; Start 08/14/16 at 00:00 Oxycodone HCl (Roxicodone) 10 mg PRN Q3HRS PRN PO PAIN Last administered on 21:18; Start 08/14/16 at 11:45 Folic Acid (Folic Acid) 4 mg DAILY PO ; Start 08/14/16 at 13:00 Methotrexate (Rheumatrex) 25 mg WEEKLY PO ; Start 08/20/16 at 09:00 Sertraline HCl (Zoloft) 50 mg DAILY PO Last administered on 08/16/16 09:19; Start 08/14/16 at 13:00 Prednisone (Prednisone) 7.5 mg DAILY PO ; Start 08/14/16 at 13:00 Enoxaparin Sodium (Lovenox 40mg Syringe) 40 mg DAILY16 SQ Last administered on 08/15/16 16:26; Start 08/14/16 at 16:00 Active Scripts Active Reported Actemra (Tocilizumab) 80 Mg/4 Ml Vial 80 Mg IV Prednisone 2.5 Mg Tablet 3 Tab PO DAILY Sertraline Hcl 50 Mg Tablet 50 Mg PO DAILY Methotrexate (Methotrexate Sodium) 2.5 Mg Tablet 10 Tab PO WEEKLY Folic Acid 1 Mg Tablet 4 Tab PO DAILY Vitals/I & O Vital Sign - Last 24 Hours 08/15/16 08/15/16 08/15/16 08/15/16 15:00 19:00 19:32 20:15 Temp 97.7 98.1 97.7 98.1 Pulse 69 53 Resp 18 16 16 B/P (MAP) 111/67 (82) 99/51 (67) Pulse Ox 91 82 O2 Delivery Room Air Room Air Nasal Cannula Room Air 08/15/16 08/15/16 08/15/16 08/15/16 20:32 21:18 22:18 23:00 Temp 97.7 97.7 Pulse 64 Resp 18 18 18 16 B/P (MAP) 86/45 (59) Pulse Ox 93 O2 Delivery Nasal Cannula Nasal Cannula Nasal Cannula Room Air O2 Flow Rate 2.0 2.0 2.0 08/16/16 08/16/16 08/16/16 08/16/16 03:00 07:00 09:20 10:20 Temp 98.2 98.8 98.2 98.8 Pulse 70 61 Resp 18 18 B/P (MAP) 89/38 (55) 119/70 (86) Pulse Ox 96 100 O2 Delivery Nasal Cannula Nasal Cannula Nasal Cannula Nasal Cannula O2 Flow Rate 2.0 2.0 2.0 2.0 08/16/16 08/16/16 11:00 12:16 Temp 97.7 97.7 Pulse 64 Resp 18 B/P (MAP) 93/48 (63) Pulse Ox 100 O2 Delivery Room Air Nasal Cannula O2 Flow Rate 2.0 Intake and Output 08/15/16 08/15/16 08/16/16 15:00 23:00 07:00 Intake Total 760 ml Output Total 675 ml 2 ml Balance -675 ml 758 ml NATASHA MARIN III DO August 16, 2016 12:49
[2016-08-16] MEDS ORDERED: METHYL SALICYLATE/MENTHOL TOPICAL OINTMENT 29GM TUBE. TP PRN (14:30)
[2016-08-16] MEDS ORDERED: traMADol 50 MG TABLET PO PRN (14:30)
[2016-08-16] MEDS: ENOXAPARIN 40 MG/0.4 ML SYRINGE. SQ SCH (16:00)
--- NOTE | 2016-08-16 18:11 | PDOC ---
PROGRESS NOTES Subjective Subjective Doing okay. Switched to tramadol for pain due to itching. PRBC being transfused at this time. Objective Vital Signs Vital Signs Date Time Temp Pulse Resp B/P (MAP) Pulse Ox O2 Delivery O2 Flow Rate FiO2 08/16/16 18:04 97.7 74 16 105/43 97.7 08/16/16 15:48 Room Air 08/16/16 15:00 94 08/16/16 12:16 2.0 Physical Exam Lying in bed with RLE elevated and ice packs. Able to RLE off bed using LLE. Full ROM of knee, nontender. Calf soft and nontender with negative Maria Elena's. Good df/pf. Peripheral pulses intact. SILT. Labs Laboratory Tests Test 08/16/16 08:10 White Blood Count 7.5 x10^3/uL (4.0-11.0) Red Blood Count 2.32 x10^6/uL (3.50-5.40) Hemoglobin 7.9 g/dL (12.0-15.5) Hematocrit 21.7 % (36.0-47.0) Mean Corpuscular Volume 93 fL (79-100) Mean Corpuscular Hemoglobin 34 pg (25-35) Mean Corpuscular Hemoglobin Concent 37 g/dL (31-37) Red Cell Distribution Width 13.6 % (11.5-14.5) Platelet Count 116 x10^3/uL (140-400) Neutrophils (%) (Auto) 53 % (31-73) Lymphocytes (%) (Auto) 37 % (24-48) Monocytes (%) (Auto) 8 % (0-9) Eosinophils (%) (Auto) 1 % (0-3) Basophils (%) (Auto) 1 % (0-3) Neutrophils # (Auto) 4.0 x10^3uL (1.8-7.7) Lymphocytes # (Auto) 2.8 x10^3/uL (1.0-4.8) Monocytes # (Auto) 0.6 x10^3/uL (0.0-1.1) Eosinophils # (Auto) 0.1 x10^3/uL (0.0-0.7) Basophils # (Auto) 0.0 x10^3/uL (0.0-0.2) Sodium Level 139 mmol/L (136-145) Potassium Level 4.0 mmol/L (3.5-5.1) Chloride Level 101 mmol/L (98-107) Carbon Dioxide Level 33 mmol/L (21-32) Anion Gap 5 (6-14) Blood Urea Nitrogen 18 mg/dL (7-20) Creatinine 0.9 mg/dL (0.6-1.0) Estimated GFR (Cockcroft-Gault) 63.9 BUN/Creatinine Ratio 20 (6-20) Glucose Level 99 mg/dL (70-99) Calcium Level 8.6 mg/dL (8.5-10.1) Total Bilirubin 0.2 mg/dL (0.2-1.0) Aspartate Amino Transf (AST/SGOT) 20 U/L (15-37) Alanine Aminotransferase (ALT/SGPT) 22 U/L (14-59) Alkaline Phosphatase 37 U/L (46-116) Total Protein 5.7 g/dL (6.4-8.2) Albumin 3.2 g/dL (3.4-5.0) Albumin/Globulin Ratio 1.3 (1.0-1.7) Laboratory Tests Test 08/16/16 08:10 White Blood Count 7.5 x10^3/uL (4.0-11.0) Red Blood Count 2.32 x10^6/uL (3.50-5.40) Hemoglobin 7.9 g/dL (12.0-15.5) Hematocrit 21.7 % (36.0-47.0) Mean Corpuscular Volume 93 fL (79-100) Mean Corpuscular Hemoglobin 34 pg (25-35) Mean Corpuscular Hemoglobin Concent 37 g/dL (31-37) Red Cell Distribution Width 13.6 % (11.5-14.5) Platelet Count 116 x10^3/uL (140-400) Neutrophils (%) (Auto) 53 % (31-73) Lymphocytes (%) (Auto) 37 % (24-48) Monocytes (%) (Auto) 8 % (0-9) Eosinophils (%) (Auto) 1 % (0-3) Basophils (%) (Auto) 1 % (0-3) Neutrophils # (Auto) 4.0 x10^3uL (1.8-7.7) Lymphocytes # (Auto) 2.8 x10^3/uL (1.0-4.8) Monocytes # (Auto) 0.6 x10^3/uL (0.0-1.1) Eosinophils # (Auto) 0.1 x10^3/uL (0.0-0.7) Basophils # (Auto) 0.0 x10^3/uL (0.0-0.2) Sodium Level 139 mmol/L (136-145) Potassium Level 4.0 mmol/L (3.5-5.1) Chloride Level 101 mmol/L (98-107) Carbon Dioxide Level 33 mmol/L (21-32) Anion Gap 5 (6-14) Blood Urea Nitrogen 18 mg/dL (7-20) Creatinine 0.9 mg/dL (0.6-1.0) Estimated GFR (Cockcroft-Gault) 63.9 BUN/Creatinine Ratio 20 (6-20) Glucose Level 99 mg/dL (70-99) Calcium Level 8.6 mg/dL (8.5-10.1) Total Bilirubin 0.2 mg/dL (0.2-1.0) Aspartate Amino Transf (AST/SGOT) 20 U/L (15-37) Alanine Aminotransferase (ALT/SGPT) 22 U/L (14-59) Alkaline Phosphatase 37 U/L (46-116) Total Protein 5.7 g/dL (6.4-8.2) Albumin 3.2 g/dL (3.4-5.0) Albumin/Globulin Ratio 1.3 (1.0-1.7) Assessment Assessment POD #3 right femoral nail Problems: Plan Plan of Care Continue DVT ppx and therapy. Toe-touch weightbearing on RLE only with walker. Tramadol for pain. GRISEL WALSH August 16, 2016 18:11
[2016-08-16] MEDS: traMADol 50 MG TABLET PO PRN ×2 (19:11→23:46)
[2016-08-17 00:29] VITALS: BP 109/62
[2016-08-17] MEDS ORDERED: diphenhydrAMINE HCL 25 MG CAPSULE PO PRN (01:30)
[2016-08-17 03:00] VITALS: BP 99/52
[2016-08-17] MEDS: traMADol 50 MG TABLET PO PRN ×3 (03:28→12:42)
[2016-08-17 04:20] LABS: HEMATOCRIT 30.7 % (36.0-47.0); HEMOGLOBIN 10.5 g/dL (12.0-15.5)
[2016-08-17 07:00] VITALS: BP 107/68
[2016-08-17] MEDS: CHOLECALCIFEROL (VITAMIN D3) 1,000 UNIT TABLET PO SCH (07:39)
[2016-08-17] MEDS: ASPIRIN 325 MG TABLET PO SCH (07:40)
[2016-08-17] MEDS: SENNOSIDES/DOCUSATE 8.6/50MG TABLET. PO SCH (07:40)
[2016-08-17] MEDS: CALCIUM CARBONATE 500 MG TABLET PO SCH ×2 (07:40→13:00)
[2016-08-17] MEDS: predniSONE 5 MG TABLET PO SCH (07:42)
[2016-08-17] MEDS: FOLIC ACID 1 MG TABLET. PO SCH (07:42)
[2016-08-17] MEDS: SERTRALINE 50 MG TABLET. PO SCH (07:42)
[2016-08-17] MEDS ORDERED: TRAM100T2 PO (10:04)
[2016-08-17] MEDS ORDERED: OXYC10TA PO (10:06)
--- NOTE | 2016-08-17 10:08 | PDOC3 ---
Discharge Summary Visit Information Date of Admission: August 13, 2016 Date of Discharge: August 17, 2016 Admitting Diagnosis Comment: 1. R femur fracture 2. WPW-cardio 3. Depression 4. Rheumatoid arthritis 5. Cholecystectomy 6. Tonsillectomy 7. Hysterectomy Brief Hospital Course Allergies Allergies Coded Allergies Type Severity Reaction Last Updated Verified acetaminophen Allergy Intermediate itching 08/14/16 Yes codeine Adverse Reaction Intermediate Hypertension 08/14/16 Yes hydrocodone Adverse Reaction Intermediate Hypertension 08/14/16 Yes Vital Signs Vital Signs Date Time Temp Pulse Resp B/P (MAP) Pulse Ox O2 Delivery O2 Flow Rate FiO2 08/17/16 08:45 Room Air 08/17/16 07:00 98.5 57 20 107/68 (81) 93 98.5 08/16/16 12:16 2.0 Lab Results Laboratory Tests Test 08/16/16 08:10 08/17/16 03:17 White Blood Count 7.5 x10^3/uL (4.0-11.0) Red Blood Count 2.32 x10^6/uL (3.50-5.40) Hemoglobin 7.9 g/dL (12.0-15.5) 10.5 g/dL (12.0-15.5) Hematocrit 21.7 % (36.0-47.0) 30.7 % (36.0-47.0) Mean Corpuscular Volume 93 fL (79-100) Mean Corpuscular Hemoglobin 34 pg (25-35) Mean Corpuscular Hemoglobin Concent 37 g/dL (31-37) 34 g/dL (31-37) Red Cell Distribution Width 13.6 % (11.5-14.5) Platelet Count 116 x10^3/uL (140-400) Neutrophils (%) (Auto) 53 % (31-73) Lymphocytes (%) (Auto) 37 % (24-48) Monocytes (%) (Auto) 8 % (0-9) Eosinophils (%) (Auto) 1 % (0-3) Basophils (%) (Auto) 1 % (0-3) Neutrophils # (Auto) 4.0 x10^3uL (1.8-7.7) Lymphocytes # (Auto) 2.8 x10^3/uL (1.0-4.8) Monocytes # (Auto) 0.6 x10^3/uL (0.0-1.1) Eosinophils # (Auto) 0.1 x10^3/uL (0.0-0.7) Basophils # (Auto) 0.0 x10^3/uL (0.0-0.2) Sodium Level 139 mmol/L (136-145) Potassium Level 4.0 mmol/L (3.5-5.1) Chloride Level 101 mmol/L (98-107) Carbon Dioxide Level 33 mmol/L (21-32) Anion Gap 5 (6-14) Blood Urea Nitrogen 18 mg/dL (7-20) Creatinine 0.9 mg/dL (0.6-1.0) Estimated GFR (Cockcroft-Gault) 63.9 BUN/Creatinine Ratio 20 (6-20) Glucose Level 99 mg/dL (70-99) Calcium Level 8.6 mg/dL (8.5-10.1) Total Bilirubin 0.2 mg/dL (0.2-1.0) Aspartate Amino Transf (AST/SGOT) 20 U/L (15-37) Alanine Aminotransferase (ALT/SGPT) 22 U/L (14-59) Alkaline Phosphatase 37 U/L (46-116) Total Protein 5.7 g/dL (6.4-8.2) Albumin 3.2 g/dL (3.4-5.0) Albumin/Globulin Ratio 1.3 (1.0-1.7) Laboratory Tests Test 08/17/16 03:17 Hemoglobin 10.5 g/dL (12.0-15.5) Hematocrit 30.7 % (36.0-47.0) Mean Corpuscular Hemoglobin Concent 34 g/dL (31-37) Brief Hospital Course Ms. Champagne is a 61 old [facility] female admitted for R femur fx, Ortho consulted , did surgery, WBAT, PAin was an issue, needed to stay 1 more extra night, NOw better with adjustments of pain meds, NO HH or outpt PT needs per pT. Pt seen and examine d Juanjo pt and RN and computer information systems professor at bedside COnsulTS; dr Banda DIspO; home Proc; R femur sx Rx in chart ff praful banda 2 weeks Discharge Information Condition at Discharge: Improved, Stable Disposition/Orders: D/C to Home Scheduled Folic Acid (Folic Acid), 4 TAB PO DAILY, (Reported) Methotrexate Sodium (Methotrexate), 10 TAB PO WEEKLY, (Reported) Prednisone (Prednisone), 3 TAB PO DAILY, (Reported) Sertraline Hcl (Sertraline Hcl), 50 MG PO DAILY, (Reported) Miscellaneous Medications Tocilizumab (Actemra), 80 MG IV, (Reported) ROMEO ARGUELLO MD August 17, 2016 10:08
[2016-08-17 11:00] VITALS: BP 112/66
--- NOTE | 2016-08-17 14:20 | PDOC ---
PROGRESS NOTES Subjective Subjective patient not in room Objective Vital Signs Vital Signs Date Time Temp Pulse Resp B/P (MAP) Pulse Ox O2 Delivery O2 Flow Rate FiO2 08/17/16 12:42 Room Air 08/17/16 11:00 98.0 66 20 112/66 (81) 97 98.0 08/16/16 12:16 2.0 Physical Exam not in room Labs Laboratory Tests Test 08/16/16 08:10 08/17/16 03:17 White Blood Count 7.5 x10^3/uL (4.0-11.0) Red Blood Count 2.32 x10^6/uL (3.50-5.40) Hemoglobin 7.9 g/dL (12.0-15.5) 10.5 g/dL (12.0-15.5) Hematocrit 21.7 % (36.0-47.0) 30.7 % (36.0-47.0) Mean Corpuscular Volume 93 fL (79-100) Mean Corpuscular Hemoglobin 34 pg (25-35) Mean Corpuscular Hemoglobin Concent 37 g/dL (31-37) 34 g/dL (31-37) Red Cell Distribution Width 13.6 % (11.5-14.5) Platelet Count 116 x10^3/uL (140-400) Neutrophils (%) (Auto) 53 % (31-73) Lymphocytes (%) (Auto) 37 % (24-48) Monocytes (%) (Auto) 8 % (0-9) Eosinophils (%) (Auto) 1 % (0-3) Basophils (%) (Auto) 1 % (0-3) Neutrophils # (Auto) 4.0 x10^3uL (1.8-7.7) Lymphocytes # (Auto) 2.8 x10^3/uL (1.0-4.8) Monocytes # (Auto) 0.6 x10^3/uL (0.0-1.1) Eosinophils # (Auto) 0.1 x10^3/uL (0.0-0.7) Basophils # (Auto) 0.0 x10^3/uL (0.0-0.2) Sodium Level 139 mmol/L (136-145) Potassium Level 4.0 mmol/L (3.5-5.1) Chloride Level 101 mmol/L (98-107) Carbon Dioxide Level 33 mmol/L (21-32) Anion Gap 5 (6-14) Blood Urea Nitrogen 18 mg/dL (7-20) Creatinine 0.9 mg/dL (0.6-1.0) Estimated GFR (Cockcroft-Gault) 63.9 BUN/Creatinine Ratio 20 (6-20) Glucose Level 99 mg/dL (70-99) Calcium Level 8.6 mg/dL (8.5-10.1) Total Bilirubin 0.2 mg/dL (0.2-1.0) Aspartate Amino Transf (AST/SGOT) 20 U/L (15-37) Alanine Aminotransferase (ALT/SGPT) 22 U/L (14-59) Alkaline Phosphatase 37 U/L (46-116) Total Protein 5.7 g/dL (6.4-8.2) Albumin 3.2 g/dL (3.4-5.0) Albumin/Globulin Ratio 1.3 (1.0-1.7) Laboratory Tests Test 08/17/16 03:17 Hemoglobin 10.5 g/dL (12.0-15.5) Hematocrit 30.7 % (36.0-47.0) Mean Corpuscular Hemoglobin Concent 34 g/dL (31-37) Assessment Assessment POD#4 after IM nail femur Problems: Plan Plan of Care Hgb is 10.5. Patient not in room, but seems stable for discharge from our standpoint based on today's vitals, labs and exam yesterday. Office follow up approximately 08/27/16 with [facility]. VALE RODRIGUEZ MD August 17, 2016 14:20
[2016-08-17] MEDS ORDERED: traMADol 50 MG TABLET PO PRN (14:30)
[2016-08-20] MEDS ORDERED: METHOTREXATE SODIUM 2.5 MG TABLET PO SCH (09:00)
== END 2016-08-17 13:30 | disposition home or self-care (01) | DRG 482 ==
LOC: ER 18:16 → 4 NORTH 19:00
PROVIDERS: ADMIT Internal Medicine; ATTEND Internal Medicine
PROC: 0QS806Z Reposition Right Femoral Shaft with Intramedullary Internal Fixation Device, Open Approach (ICD-10-PCS; principal; 2016-08-13 20:00)
PROC: 30233N0 Transfusion of Autologous Red Blood Cells into Peripheral Vein, Percutaneous Approach (ICD-10-PCS; 2016-08-15)
DX: S72.351A Displaced comminuted fracture of shaft of right femur, initial encounter for closed fracture (principal); W10.9XXA Fall (on) (from) unspecified stairs and steps, initial encounter; F32.9 Major depressive disorder, single episode, unspecified; I45.6 Pre-excitation syndrome; M19.90 Unspecified osteoarthritis, unspecified site; M06.9 Rheumatoid arthritis, unspecified; Z80.3 Family history of malignant neoplasm of breast; Y92.009 Unspecified place in unspecified non-institutional (private) residence as the place of occurrence of the external cause; Z83.3 Family history of diabetes mellitus; Z82.3 Family history of stroke; Z87.891 Personal history of nicotine dependence; Z90.49 Acquired absence of other specified parts of digestive tract; Z90.89 Acquired absence of other organs; Z90.710 Acquired absence of both cervix and uterus; Z79.52 Long term (current) use of systemic steroids; Z88.6 Allergy status to analgesic agent; Y93.89 Activity, other specified; Y92.89 Other specified places as the place of occurrence of the external cause; Y99.8 Other external cause status
CPT/HCPCS: 36415; 51702; 71010; 73502; 73552; 76001; 80048; 80053; 82306; 85014; 85018; 85027; 86850; 86900; 86901; 86920; 93005; 96360; 96374; 96375; 96376; C1713; J0690; J1100; J1170; J1200; J1650; J1720; J2250; J2270; J2370; J2405; J2704; J3010; J3360; P9016; Q0163; 97116; 97530; 97535; 99285-25

== ENCOUNTER → 2016-09-12 | Outpatient (CLI) | payer BC ==
[2016-08-17 11:00] VITALS: BP 112/66
[~2016-09-12] MED LIST: FOLI1TAB16 PO; METH2.5T PO; OXYC10TA PO; PRED2.5T PO; SERT50TA8 PO; TOCI80VI IV; TRAM100T2 PO
--- NOTE | 2016-09-12 14:00 | KCIC ---
Examination: 3 views of the right ankle HISTORY: History of right ankle pain status post fall one month back COMPARISON: None available FINDINGS: The ankle mortise appears intact. There is no acute fracture identified. Impression: No acute osseous findings. Electronically signed by: David Wallace MD (09/12/2016 1:57 PM)
== END | disposition home or self-care (01) ==
LOC: KCIC 10:28
PROVIDERS: ATTEND Nurse Practitioner Family
DX: M25.571 Pain in right ankle and joints of right foot (principal)
CPT/HCPCS: 73610

== ENCOUNTER → 2017-05-06 | Outpatient (CLI) | payer BC | END | disposition home or self-care (01) | LOC: KCIC MRI 10:03 | DX: S72.8X1D Other fracture of right femur, subsequent encounter for closed fracture with routine healing (principal); M17.11 Unilateral primary osteoarthritis, right knee; M22.41 Chondromalacia patellae, right knee; M81.8 Other osteoporosis without current pathological fracture; M85.88 Other specified disorders of bone density and structure, other site; Z78.0 Asymptomatic menopausal state; X58.XXXD Exposure to other specified factors, subsequent encounter | CPT/HCPCS: 73721; 77080 ==